=== PATIENT | male | born 1935 | race Caucasian/White ===

== ENCOUNTER 2017-08-03 10:00 | Emergency (ER) | payer MEDICARE ==
[2017-08-03 10:12] VITALS: BP 134/56
--- NOTE | 2017-08-03 11:43 | UC ---
Lower Extremity/Ankle HPI - HPI Summary HPI Summary: c/o leg swelling for the past 3 days. Denies pain on ambulation. History of ankle swelling as well, denies history of trauma. - History of Current Complaint Chief Complaint: UCLowerExtremity Stated Complaint: SWELLING IN FOOT Time Seen by Provider: 08/03/17 10:35 - Allergies/Home Medications Allergies/Adverse Reactions: Allergies Allergy/AdvReac Type Severity Reaction Status Date / Time No Known Allergies Allergy Verified 08/03/17 10:09 PMH/Surg Hx/FS Hx/Imm Hx - Additional Past Medical History Additional PMH: gout, allergic rhinitis Previously Healthy: Yes Cardiovascular History: Hypertension Other History Of: Negative For: Anticoagulant Therapy - Surgical History Surgical History: Yes Surgery Procedure, Year, and Place: RIGHT SIDED COLECTOMY 1997, partial ileus resection at 21 years old - Social History Alcohol Use: Occasionally Substance Use Type: None Smoking Status (MU): Former Smoker Amount Used/How Often: 1/2 PPD When Did the Patient Quit Smoking/Using Tobacco: 1997 Household Exposure Type: Cigarettes - Immunization History Most Recent Influenza Vaccination: fall 2012 Most Recent Tetanus Shot: <10yrs. Most Recent Pneumonia Vaccination: 06/16/13 Review of Systems Constitutional: Negative Musculoskeletal: Edema All Other Systems Reviewed And Are Negative: Yes Physical Exam Triage Information Reviewed: Yes Appearance: Well-Appearing Vital Signs: Initial Vital Signs Temp 98.4 F 08/03/17 10:10 Pulse 77 08/03/17 10:10 Resp 16 08/03/17 10:10 BP 134/56 08/03/17 10:10 Pulse Ox 100 08/03/17 10:10 Vital Signs Reviewed: Yes ENT: Positive: Normal ENT inspection Neck exam: Normal Respiratory Exam: Normal Cardiovascular Exam: Normal Abdominal Exam: Normal Musculoskeletal: Positive: Edema @ - LLE with pitting edema and ankle edema. Pedal pulses present, capillary refill less than 2 sec Neurological: Positive: Alert, Muscle Tone Normal Lower Extremity Course/Dx - Course Course Of Treatment: transfered to ER for venous doppler r/o DVT - Differential Dx/Diagnosis Provider Diagnoses: LLE edema Discharge - Discharge Plan Condition: Stable Disposition: [facility] Patient Education Materials: Leg Edema (ED) Referrals: Victor Manuel Bello MD [Primary Care Provider] -
== END 2017-08-03 11:42 | disposition short-term general hospital (02) ==
LOC: UCEAST 10:00
DX: R60.0 Localized edema (principal); M10.9 Gout, unspecified; J30.9 Allergic rhinitis, unspecified; I10 Essential (primary) hypertension; Z87.891 Personal history of nicotine dependence
CPT/HCPCS: 99212; G0463

== ENCOUNTER 2017-08-03 12:18 | Emergency (ER) | payer MEDICARE, OTHER ==
--- NOTE | 2017-08-03 16:29 | RAD ---
HISTORY: Left lower extremity edema COMPARISONS: None relevant TECHNIQUE: Multiple transverse and longitudinal ultrasound images were obtained of the left lower extremity from the level of the common femoral vein inferiorly through to the infrapopliteal veins using grayscale, color Doppler, and spectral Doppler imaging with and without compression and with augmentation. Comparison images were obtained of the contralateral common femoral vein. FINDINGS: VEINS: The venous system of the left lower extremity is compressible throughout its course, with normal flow on color Doppler imaging and normal response to augmentation on spectral Doppler imaging. SOFT TISSUES: Unremarkable. OTHER FINDINGS: None. IMPRESSION: NO LEFT LOWER EXTREMITY DEEP VEIN THROMBOSIS
--- NOTE | 2017-08-03 16:34 | ED ---
Lower Extremity - HPI Summary HPI Summary: Pt here w/ LLE edema x 5 days. Atraumatic. Was seen at a few days ago as swelling started in foot then. Foot XR completed and reveals degenerative changes in 1st MTP joint. Pt was seen again at today as swelling is progressing w/o known cause. Painless. No improvement with sleeping/elevating at night. Denies chest pain, SOB, ab pain, groin pain, fever, chills, N/V, numbness, tingling, weakness, new onset back pain. No pain w/ movement or weight bearing. Denies smoking, recent causes of dehydration, h/o clots, prolonged sitting (in fact comments, he can't sit still long - likes to move around), change in activity (ie. walking w/ new shoes, new surfaces, etc) and no known h/o CA. Denies knee, hip, back, ankle pain. Does have h/o gout - takes daily allopurinol - this does not feel like gout (again, no pain). - History of Current Complaint Chief Complaint: EDExtremityLower Stated Complaint: LEFT FOOT PAIN COMING FROM Time Seen by Provider: 08/03/17 14:46 Hx Obtained From: Patient, Family/Ways Operator - Pain Intensity: 0 - Allergies/Home Medications Allergies/Adverse Reactions: Allergies Allergy/AdvReac Type Severity Reaction Status Date / Time No Known Allergies Allergy Verified 08/03/17 10:09 PMH/Surg Hx/FS Hx/Imm Hx Previously Healthy: Yes Endocrine/Hematology History: Denies: Hx Anticoagulant Therapy, Hx Diabetes, Hx Systemic Lupus Erythematosus, Hx Thyroid Disease Cardiovascular History: Reports: Hx Hypertension - on meds Denies: Hx Aneurysm, Hx Congestive Heart Failure, Hx Deep Vein Thrombosis, Hx Embolism, Hx Pacemaker/ICD, Hx Peripheral Vascular Disease Respiratory History: Reports: Hx Sleep Apnea - NO MACHINES Denies: Hx Asthma, Hx Chronic Obstructive Pulmonary Disease (COPD) GI History: Reports: Hx Crohn's Disease, Hx Obstructive Bowel, Other GI Disorders - illitis Denies: Hx Diverticulosis, Hx Gall Bladder Disease, Hx Gastroesophageal Reflux Disease, Hx Gastrointestinal Bleed, Hx Ulcer History: Reports: Hx Benign Prostatic Hyperplasia Denies: Hx Renal Disease Musculoskeletal History: Reports: Hx Gout Denies: Hx Arthritis, Hx Rheumatoid Arthritis, Hx Osteoporosis, Hx Scoliosis Sensory History: Reports: Hx Contacts or Glasses Denies: Hx Cataracts, Hx Glaucoma, Hx Hearing Aid Opthamlomology History: Reports: Hx Contacts or Glasses Denies: Hx Cataracts, Hx Glaucoma Neurological History: Denies: Hx Dementia, Hx Headaches, Hx Seizures, Hx Transient Ischemic Attacks (TIA), Other Neuro Impairments/Disorders Psychiatric History: Denies: Hx Anxiety, Hx Depression, Hx Panic Disorder, Hx Substance Abuse - Surgical History Surgery Procedure, Year, and Place: RIGHT SIDED COLECTOMY 1997, partial ileus resection at 21 years old Hx Anesthesia Reactions: No Infectious Disease History: No Infectious Disease History: Denies: Hx Clostridium Difficile, Hx Hepatitis, Hx Human Immunodeficiency Virus (HIV), Hx of Known/Suspected MRSA, Hx Shingles, Hx Tuberculosis, Hx Known/ Suspected VRE, Hx Known/Suspected VRSA, History Other Infectious Disease, Traveled Outside the [place] in Last 30 Days - Family History Known Family History: Positive: None - Social History Occupation: Retired Lives: With Family Alcohol Use: Occasionally Hx Substance Use: No Substance Use Type: Reports: None Hx Tobacco Use: Yes - not currently Smoking Status (MU): Former Smoker Amount Used/How Often: 1/2 PPD Review of Systems Constitutional: Negative Negative: Fever, Chills, Fatigue Cardiovascular: Negative Negative: Chest Pain Respiratory: Negative Negative: Shortness Of Breath Gastrointestinal: Negative Negative: Abdominal Pain, Vomiting, Diarrhea, Nausea Positive: no symptoms reported Positive: Edema. Negative: Arthralgia, Myalgia, Decreased ROM Skin: Negative Negative: Rash, Bruising Neurological: Negative Negative: Headache, Weakness, Paresthesia, Numbness, Syncope, Slurred Speech Psychological: Normal - concerned but calm All Other Systems Reviewed And Are Negative: Yes Physical Exam Triage Information Reviewed: Yes Vital Signs On Initial Exam: Initial Vitals Temp Pulse Resp BP Pulse Ox 98.6 F 66 16 148/64 97 08/03/17 12:39 08/03/17 12:39 08/03/17 12:39 08/03/17 12:39 08/03/17 12:39 Vital Signs Reviewed: Yes Appearance: Positive: Well-Appearing, No Pain Distress, Well-Nourished Skin: Positive: Warm, Skin Color Reflects Adequate Perfusion - varicose vv B/L w / superficial telangectasias over LE's - no skin breakdown, no vesicles, no fever to touch, no kristina erythema, Dry Head/Face: Positive: Normal Head/Face Inspection Eyes: Positive: EOMI ENT: Positive: Hearing grossly normal Respiratory/Lung Sounds: Positive: Breath Sounds Present. Negative: Rales Cardiovascular: Positive: Pulses are Symmetrical in both Upper and Lower Extremities, Leg Edema Left - +1-2 pitting pedal edema on Lt; no pedal edema on Rt; varicose vv B/L w/ multiple areas of superficial capillaries; no fever to touch, no streaking, (-) Efra's, no lesions, no vesicles, no skin breakdown; DP 's +2 equal B/L and cap refill < 2 secs, Leg Edema Right Abdomen Description: Positive: Nontender, Soft. Negative: Pulsatile Mass Musculoskeletal: Positive: Normal, Strength/ROM Intact Neurological: Positive: Normal, Sensory/Motor Intact, Alert, Oriented to Person Place, Time, CN Intact II-III Psychiatric: Positive: Normal - [place] Coma Scale Coma Scale Total: 15 Diagnostics - Vital Signs Vital Signs Temp Pulse Resp BP Pulse Ox 08/03/17 15:22 98.3 F 62 17 125/65 96 08/03/17 12:39 98.6 F 66 16 148/64 97 - Laboratory Lab Statement: Any lab studies that have been ordered have been reviewed, and results considered in the medical decision making process. Lower Extremity Course/Dx - Course Course Of Treatment: U/S neg for DVT - suspect venous stasis - elevated, compression stocking and f/u w/ PCP. Return to ED if danger s/sx present. - Diagnoses Provider Diagnoses: Varicose veins of left leg with edema Discharge - Discharge Plan Condition: Stable Disposition: HOME Patient Education Materials: Venous Insufficiency (DC) Referrals: Victor Manuel Bello MD [Primary Care Provider] - Additional Instructions: Rest, elevate and wear compression stockings Follow-up with PCP this week - call Saturday for appointment *If in the meantime, you develop redness, pain, groin pain, chest pain, shortness of breath, fever, increased heart rate, chills, nausea, vomiting or diarrhea, return to ED
[2017-08-03 17:13] VITALS: BP 136/71
== END 2017-08-03 17:12 | disposition home or self-care (01) ==
LOC: ED 12:18
DX: I83.892 Varicose veins of left lower extremity with other complications (principal); Z87.891 Personal history of nicotine dependence
CPT/HCPCS: 99282

== ENCOUNTER 2018-06-07 02:28 | Inpatient (IN) | payer MEDICARE, OTHER ==
[2018-06-07] MEDS ORDERED: NS 0.9% 1000 ML*IV.FLUID IV ONE (02:48)
--- NOTE | 2018-06-07 03:00 | ED ---
Abdominal Pain/Male - HPI Summary HPI Summary: Pt is an 83 y/o male brought in by EMS who presents to the ED c/o abdominal pain. As per EMS, hes had N/V and LLQ pain for the past 2-3 days. Today he suddenly became weak with chills and collapsed in his garage with possible LOC. Pt then projectile vomited, which made him feel better. As per EMS, he is warm to the touch and is tachycardic. He c/o lower abdominal pain but is no longer nauseated. Pt denies any back pain, CP, dysuria or hematuria. He has a hx of SBO , Crohns, and abdominal surgeries. - History of Current Complaint Stated Complaint: ABD PAIN, SOB Time Seen by Provider: 06/07/18 02:29 Hx Obtained From: Patient, EMS Onset/Duration: Gradual Onset, Lasting Days - 2-3, Worse Since Timing: Constant Pain Intensity: 0 Pain Scale Used: 0-10 Numeric Location: Discrete At: LLQ Radiates: No Alleviating Factor(s): Vomiting Associated Signs And Symptoms: Positive: Fever, Nausea, Vomiting. Negative: Chest Pain, Back Pain, Urinary Symptoms Similar Episode/Dx As:: SBO - Allergies/Home Medications Allergies/Adverse Reactions: Allergies Allergy/AdvReac Type Severity Reaction Status Date / Time No Known Allergies Allergy Verified 06/07/18 04:43 Home Medications: Home Medications Clarinex 5 mg PO DAILY PRN 06/07/18 [History Confirmed 06/07/18] Cyanocobalamin INJ * 1,000 mcg IM MONTHLY 06/07/18 [History Confirmed 06/07/18] Cyclobenzaprine TAB* 10 mg PO BEDTIME PRN 06/07/18 [History Confirmed 06/07/18] Delzicol 800 mg PO BID 06/07/18 [History Confirmed 06/07/18] Fluticasone NASAL SPRAY 50MCG* 1 spray INTRANASAL DAILY 06/07/18 [History Confirmed 06/07/18] Meclizine HCl 25 mg PO TID PRN 06/07/18 [History Confirmed 06/07/18] Oscal D TAB 250/125* 800 mg PO BID 06/07/18 [History Confirmed 06/07/18] Vitamin D3 50,000 units PO WEEKLY 06/07/18 [History Confirmed 06/07/18] PMH/Surg Hx/FS Hx/Imm Hx Endocrine/Hematology History: Denies: Hx Anticoagulant Therapy, Hx Diabetes, Hx Systemic Lupus Erythematosus, Hx Thyroid Disease Cardiovascular History: Reports: Hx Hypertension - on meds Denies: Hx Aneurysm, Hx Congestive Heart Failure, Hx Deep Vein Thrombosis, Hx Embolism, Hx Pacemaker/ICD, Hx Peripheral Vascular Disease Respiratory History: Reports: Hx Sleep Apnea - NO MACHINES Denies: Hx Asthma, Hx Chronic Obstructive Pulmonary Disease (COPD) GI History: Reports: Hx Crohn's Disease, Hx Obstructive Bowel, Other GI Disorders - illitis Denies: Hx Diverticulosis, Hx Gall Bladder Disease, Hx Gastroesophageal Reflux Disease, Hx Gastrointestinal Bleed, Hx Ulcer History: Reports: Hx Benign Prostatic Hyperplasia Denies: Hx Renal Disease Musculoskeletal History: Reports: Hx Gout Denies: Hx Arthritis, Hx Rheumatoid Arthritis, Hx Osteoporosis, Hx Scoliosis Sensory History: Reports: Hx Contacts or Glasses Denies: Hx Cataracts, Hx Glaucoma, Hx Hearing Aid Opthamlomology History: Reports: Hx Contacts or Glasses Denies: Hx Cataracts, Hx Glaucoma Neurological History: Denies: Hx Dementia, Hx Headaches, Hx Seizures, Hx Transient Ischemic Attacks (TIA), Other Neuro Impairments/Disorders Psychiatric History: Denies: Hx Anxiety, Hx Depression, Hx Panic Disorder, Hx Substance Abuse - Surgical History Surgery Procedure, Year, and Place: RIGHT SIDED COLECTOMY 1997, partial ileus resection at 21 years old Hx Anesthesia Reactions: No Infectious Disease History: Unable to Obtain/Confirm Infectious Disease History: Denies: Hx Clostridium Difficile, Hx Hepatitis, Hx Human Immunodeficiency Virus (HIV), Hx of Known/Suspected MRSA, Hx Shingles, Hx Tuberculosis, Hx Known/ Suspected VRE, Hx Known/Suspected VRSA, History Other Infectious Disease, Traveled Outside the [place] in Last 30 Days - Family History Known Family History: Positive: Cardiac Disease, Other - CA, alzheimer's - Social History Alcohol Use: Occasionally Hx Substance Use: No Substance Use Type: Reports: None Hx Tobacco Use: Yes - not currently Smoking Status (MU): Former Smoker Amount Used/How Often: 1/2 PPD Review of Systems Positive: Fever, Chills Negative: Chest Pain Positive: Abdominal Pain, Vomiting, Nausea Negative: dysuria, hematuria Negative: Myalgia - back Neurological: Other - LOC Positive: Weakness All Other Systems Reviewed And Are Negative: Yes Physical Exam - Summary Physical Exam Summary: Appearance: Well appearing, mild pain distress Skin: hot, dry, flushing in face Head/face: normal Eyes: EOMI, [place] ENT: mucous membranes dry Neck: supple, non-tender Respiratory: occasional crackle in right base, breath sounds present Cardiovascular: tachycardic but regular rhythm, pulses symmetrical Abdomen: non-tender, soft, surgical scar in RLQ, large midline surgical scar, no pulsatile abdominal mass Bowel Sounds: increased, no high pitch noises Musculoskeletal: normal, strength/ROM intact Neuro: normal, sensory motor intact, A&Ox3 Triage Information Reviewed: Yes Vital Signs On Initial Exam: Initial Vitals Temp Pulse Resp BP Pulse Ox 103 F 122 16 122/67 93 06/07/18 02:35 06/07/18 02:35 06/07/18 02:35 06/07/18 02:35 06/07/18 02:35 Vital Signs Reviewed: Yes Diagnostics - Vital Signs Vital Signs Temp Pulse Resp BP Pulse Ox 06/07/18 02:50 102.5 F 06/07/18 02:35 103 F 122 16 122/67 93 - Laboratory Result Diagrams: 06/07/18 03:09 06/07/18 03:09 Lab Statement: Any lab studies that have been ordered have been reviewed, and results considered in the medical decision making process. - Radiology CXR Radiology Interpretation Completed By: ED Physician - No acute cardiopulmonary disease. Pending official radiology report. - CT CT A/P CT Interpretation Completed By: Radiologist - 1. There is a 1.9 cm calcific density noted in the distal ileum best seen on axial image 53 and coronal image 42, findings may represent a gallstone or ingested foreign body. There are dilated loops of small bowel noted proximally measuring up to 2.6 CM findings are concerning for partial small bowel obstruction versus ileus. 2. The gallbladder is dilated containing multiple gallstones measuring up to 1.2 CM. Recommend right upper quadrant sonography for further evaluation. 3. There are sutures noted in the cecum and prior partial bowel resection. ED physician reviewed radiology report. - EKG 2:40 Cardiac Rate: Tachycardia - 118 bpm EKG Rhythm: Sinus Rhythm ST Segment: Normal Ectopy: PACs Summary of EKG Findings: LAD, tall T waves anteriorly Re-Evaluation - Re-Evaluation First Eval Re-Evaluation Time: 04:00 Change: Unchanged Comment: Post-void residual 60-125 ml via bladder scanner. Abdominal Pain Fem Course/Dx - Course Course Of Treatment: Patient with history of Crohn's disease presents with abdominal pain, large emesis just prior to arrival. The patient was found to have partial small bowel obstruction with no abscess. His fever improved significantly here. He had no significant WBC elevation. IV Zosyn given. The patient will be admitted to the hospitalist service with GI consultation in the morning. NG tube was not placed as of yet given that his pain, distention has resolved. He has not had any nausea here. There is possibility of gallstone ileus with a calcification seen. Again, there is no pain at present. Dr. Herrera from surgery is aware but has not yet been formally consultation by the admitting team. - Diagnoses Differential Diagnosis/HQI/PQRI: Abdominal Aortic Aneurysm, Appendicitis, Bowel Obstruction, Constipation, Gall Bladder Disease, Ischemic Bowel, Pancreatitis, Peptic Ulcer Disease, Other - Gallstone ileus Provider Diagnoses: Partial small bowel obstruction, Crohn's disease, Sepsis syndrome, Chronic renal insufficiency, Prostatic hypertrophy - Provider Notifications Discussed Care Of Patient With: Rubén Herrera Time Discussed With Above Provider: 05:28 Instructed by Provider To: Admit As Inpatient Discharge - Sign-Out/Discharge Documenting (check all that apply): Patient Departure - Admit - Discharge Plan Condition: Stable Disposition: ADMITTED TO [facility] - Billing Disposition and Condition Condition: STABLE Disposition: Admitted to [facility] - Attestation Statements Document Initiated by Scribe: Yes Documenting Scribe: Kristal [place] Provider For Whom Scribe is Documenting (Include Credential): Reynaldo Sousa MD Scribe Attestation: Kristal Villa, scribed for Reynaldo Sousa MD on 06/07/18 at 0632. Scribe Documentation Reviewed: Yes Provider Attestation: The documentation as recorded by the Kristal fisher accurately reflects the service I personally performed and the decisions made by , Reynaldo Sousa MD
[2018-06-07] MEDS ORDERED: Acetaminophen TAB* 325 MG PO ONE (03:18)
[2018-06-07 03:19] LABS: ABS Basophils 0 10^3/ul (0-0.2); ABS Eosinophils 0 10^3/ul (0-0.6); ABS Lymphocytes 0.2 10^3/ul (1.0-4.8); ABS Monocytes 0.1 10^3/ul (0-0.8); ABS Neutrophils 7.5 10^3/ul (1.5-7.7); ABS Nucleated RBC 0 10^3/ul; Eosinophil % 0.3 % (0-6); Hematocrit 42 % (42-52); Hemoglobin 14.2 g/dl (14.0-18.0); Lymphocyte % 2.5 % (25-47); Mean Corpuscular HGB Conc 34 g/dl (31-36); Mean Corpuscular Hemoglobin 28 pg (27-31); Mean Corpuscular Volume 84 fL (80-94); Mean Platelet Volume 8.3 fL (7.4-10.4); Nucleated Red Blood Cells % 0.1; Platelet Count 113 10^3/ul (150-450); Red Blood Count 5.02 10^6/ul (4.00-5.40); Red Cell Distribution Width 14 % (10.5-15); White Blood Count 7.8 10^3/ul (3.5-10.8)
[2018-06-07 03:25] LABS: INR 1.14 (0.77-1.02)
[2018-06-07] MEDS ORDERED: Piperacillin/Tazobac ADVAN(*) 3.375 GM in NS 0.9% 100 ML* 100 ML IVPB ONE (04:04)
[2018-06-07] MEDS ORDERED: NS 0.9% 1000 ML* 1,000 ML IV SCH (04:45)
[2018-06-07] MEDS ORDERED: Ondansetron INJ* 2 MG/ML VIAL IV PRN (04:47)
[2018-06-07] MEDS ORDERED: Cetirizine* 10 MG TAB PO PRN (04:48)
[2018-06-07] MEDS ORDERED: AZELASTINE HCL 137 MCG NASAL PRN (04:48)
[2018-06-07] MEDS ORDERED: Cyclobenzaprine TAB* 10 MG PO PRN (05:44)
[2018-06-07] MEDS ORDERED: DESLORATADINE 5 MG PO PRN (05:44)
[2018-06-07] MEDS ORDERED: Meclizine TAB* 12.5 MG PO PRN (05:44)
[2018-06-07] MEDS ORDERED: VITAMIN D3 50000 UNIT PO SCH (05:45)
[2018-06-07] MEDS ORDERED: CYANOCOBALAMIN 1000 MCG IM SCH (05:45)
[2018-06-07] MEDS ORDERED: Heparin VIAL(*) 5000 UNITS/ML VIAL (FIVE THOUSAND) SUBCUT SCH (06:00)
[2018-06-07] MEDS: Pantoprazole IV* 40 MG IV SCH (06:57)
[2018-06-07 08:03] LABS: EGFR Non-African American 37.1 (>60)
[2018-06-07 08:08] LABS: Hematocrit 37 % (42-52); Hemoglobin 12.4 g/dl (14.0-18.0); Mean Corpuscular HGB Conc 33 g/dl (31-36); Mean Corpuscular Hemoglobin 28 pg (27-31); Mean Corpuscular Volume 85 fL (80-94); Mean Platelet Volume 8.7 fL (7.4-10.4); Platelet Count 100 10^3/ul (150-450); Red Blood Count 4.38 10^6/ul (4.00-5.40); Red Cell Distribution Width 14 % (10.5-15); White Blood Count 12.8 10^3/ul (3.5-10.8)
[2018-06-07 08:15] LABS: ABS Basophils 0 10^3/ul (0-0.2); ABS Eosinophils 0 10^3/ul (0-0.6); ABS Lymphocytes 0.3 10^3/ul (1.0-4.8); ABS Monocytes 0.5 10^3/ul (0-0.8); ABS Nucleated RBC 0 10^3/ul; Eosinophil % 0.1 % (0-6); Lymphocyte % 2.2 % (25-47); Nucleated Red Blood Cells % 0
[2018-06-07] MEDS ORDERED: Acetaminophen SUPP* 650 MG SUPP PR PRN (08:35)
[2018-06-07] MEDS ORDERED: PROCHLORPERAZINE INJ 5 MG/ML 2 ML VIAL IV PRN (08:37)
[2018-06-07] MEDS ORDERED: Ascorbic Acid TAB* 500 MG PO SCH (09:00)
[2018-06-07] MEDS ORDERED: Multivitamins/Minerals TAB PO SCH (09:00)
[2018-06-07] MEDS ORDERED: OMEGA ACID ETHYL ESTERS PO SCH (09:00)
[2018-06-07] MEDS ORDERED: SAW PALMETTO PO SCH (09:00)
[2018-06-07] MEDS ORDERED: Allopurinol TAB* 100 MG PO SCH (09:00)
[2018-06-07] MEDS ORDERED: amLODIPine TAB* 5 MG PO SCH (09:00)
[2018-06-07] MEDS ORDERED: MESALAMINE PO SCH (09:00)
[2018-06-07] MEDS ORDERED: Lisinopril TAB* 10 MG PO SCH (09:00)
[2018-06-07] MEDS ORDERED: FOLIC ACID 0.4 MG PO SCH (09:00)
[2018-06-07] MEDS ORDERED: Calcium/Vitamin D TAB 250/125* TAB PO SCH (09:00)
[2018-06-07] MEDS ORDERED: Heparin VIAL(*) 5000 UNITS/ML VIAL (FIVE THOUSAND) IV PRN (09:03)
--- NOTE | 2018-06-07 09:09 | ADMNOTE ---
Subjective Date of Service: 06/07/18 Interval History: code status full this is admission h/p hpi this is a 83 yr old wm with hx of crohn's f/u with gi dr turner presented to er with increased abd n/v/d spike to 103/shivering. pt had a large volume of vomitus prior to admission and says his abd pain has been better. supposed to see gi dr turner but was unable to get appt yet. ct of abd showed partial sbo with multiple gallstones seen 1.9 cm calcified density seen on the distal ileum had diarrheas 2- 3 episodes within the last month abd pain described as grabbing type of pain located in the mid abd 5-12/22 phx /pshx crohn not on any immunotherapy f/u with dr turner s/p small bowel resection with colostomy/reversal 20 yrs ago htn social hx no cig occ etoh walks indep lives with fhx denied any htn/dm/cva/cad with no family hx of ibd Review of Systems - Measurements Intake and Output: Intake and Output Last 24 Hours 06/05/18 06/06/18 06/07/18 06/08/18 06:59 06:59 06:59 06:59 Intake Total 2600 Output Total 250 Balance 2350 Weight 185 lb Intake: IV Fluids 2600 Output: Urine 250 - Review of Systems General Comments: pertinent as per hpi Objective Active Medications: Acetaminophen (Tylenol Supp*) 650 mg SD Q4H PRN PRN Reason: Pain/fever Fluticasone Propionate (Flonase Nasal [place] 50mcg*) 1 spray INTRANASAL DAILY MATT Heparin Sodium (Porcine) (Heparin Vial(*)) 0 units IV .BOLUS PRN PRN Reason: PER HEPARIN DRIP PROTOCOL Sodium Chloride (Ns 0.9% 1000 Ml*) 1,000 mls @ 125 mls/hr IV PER RATE MATT Last Admin: 06/07/18 06:51 Dose: 125 mls/hr Piperacillin Sod/Tazobactam (Sod 3.375 gm/ Sodium Chloride) 100 mls @ 25 mls/ hr IVPB Q8H MATT Diltiazem HCl 125 mg/ Sodium (Chloride) 125 mls @ 5 mls/hr IVPB Q24H MATT; Protocol Heparin Sodium/Dextrose (Heparin Drip 25,000 Units(*)) 25,000 units in 500 mls @ 0 mls/hr IV PER RATE [facility]; Protocol Nft: Azelastine Hcl ([Astelin] 137 Mcg) 137 mcg NASAL BID PRN PRN Reason: CONGESTION Ondansetron HCl (Zofran Inj*) 4 mg IV Q6H PRN PRN Reason: NAUSEA Pantoprazole Sodium (Protonix Iv*) 40 mg IV Q24H [facility] Last Admin: 06/07/18 06:57 Dose: 40 mg Prochlorperazine Edisylate (Compazine Inj*) 5 mg IV Q6H PRN PRN Reason: NAUSEA/VOMITING Vital Signs - 8 hr 06/07/18 06/07/18 06/07/18 02:35 02:50 02:52 Temperature 103 F 102.5 F Pulse Rate 122 113 Respiratory 16 24 Rate Blood Pressure 122/67 123/62 (mmHg) O2 Sat by Pulse 93 90 Oximetry 06/07/18 06/07/18 06/07/18 03:00 03:37 03:52 Temperature Pulse Rate 106 93 97 Respiratory 26 30 22 Rate Blood Pressure 114/60 119/58 (mmHg) O2 Sat by Pulse 90 93 94 Oximetry 06/07/18 06/07/18 06/07/18 04:00 04:22 04:27 Temperature 99.7 F Pulse Rate 99 95 Respiratory 23 22 Rate Blood Pressure 101/53 (mmHg) O2 Sat by Pulse 93 93 Oximetry 06/07/18 06/07/18 06/07/18 04:52 05:00 05:15 Temperature Pulse Rate 126 139 125 Respiratory 19 21 22 Rate Blood Pressure 90/56 81/55 (mmHg) O2 Sat by Pulse 94 92 92 Oximetry 06/07/18 06/07/18 06/07/18 05:17 05:19 05:20 Temperature 99.2 F Pulse Rate 125 140 124 Respiratory 26 22 16 Rate Blood Pressure 79/46 73/55 92/53 (mmHg) O2 Sat by Pulse 92 91 93 Oximetry 06/07/18 06/07/18 06/07/18 05:21 05:51 06:00 Temperature Pulse Rate 129 117 117 Respiratory 22 20 23 Rate Blood Pressure 92/53 94/45 (mmHg) O2 Sat by Pulse 90 92 91 Oximetry 06/07/18 06/07/18 06/07/18 06:21 06:40 06:50 Temperature 99.2 F 98.3 F Pulse Rate 115 124 116 Respiratory 21 16 18 Rate Blood Pressure 84/56 92/53 96/56 (mmHg) O2 Sat by Pulse 91 93 94 Oximetry 06/07/18 06/07/18 06/07/18 06:55 08:00 08:59 Temperature 98.3 F Pulse Rate 116 Respiratory 18 18 Rate Blood Pressure 96/56 (mmHg) O2 Sat by Pulse 94 94 Oximetry Oxygen Devices in Use Now: Nasal Cannula Appearance: nad Eyes: No Scleral Icterus, PERRLA Ears/Nose/Mouth/Throat: NL Teeth, Lips, Gums, Clear Oropharnyx, Mucous Membranes Moist Neck: NL Appearance and Movements; NL JVP, Trachea Midline, No Thyroid Enlargement, Masses Respiratory: Symmetrical Chest Expansion and Respiratory Effort, Clear to Auscultation Cardiovascular: NL Sounds; No Murmurs; No JVD, RRR - soft + mild tenderness at mid abd around the umbilicus no rebound no guarding Extremities: - - trace pedal edema able to raise ue and le against gravity Skin: No Rash or Ulcers Neurological: Alert and Oriented x 3, NL Sensation, NL Muscle Strength and Tone - sinus tach no acute st t change seen Result Diagrams: 06/07/18 06:13 06/07/18 06:13 Assess/Plan/Problems-Billing Assessment: this is a 83 yr old wm with hx of crohn dz but not on any immunotherapy presented with n/v/d/fever ---> ct scan of abd showed partial sbo with multiple gallstone seen pt also has 1.9 cm calcified lesion seen in the distal ileum intial wbc was wnl got zosyn from er his intial abd exam was quite benign - Patient Problems (1) Abdominal pain Current Visit: Yes Status: Acute Code(s): R10.9 - UNSPECIFIED ABDOMINAL PAIN SNOMED Code(s): 86441021 Comment: npo except meds for now will need to call dr turner er did not call him one 1.9 cm mass seen in the terminal ileum but has calcification ---> chronic instead of acute (2) SBO (small bowel obstruction) Current Visit: Yes Status: Acute Code(s): K56.609 - UNSP INTESTNL OBST, UNSP TO PARTIAL VERSUS COMPLETE OBST SNOMED Code(s): 991736716 Comment: partial sbo currently does not have n/v zofran prn no ngt yet await for gi eval in am then decide (3) Gallstone Current Visit: Yes Status: Acute Code(s): K80.20 - CALCULUS OF GALLBLADDER W /O CHOLECYSTITIS W/O OBSTRUCTION SNOMED Code(s): 939640180 Comment: this has been a chronic problem with multiple stone seen abd sono will be ordered for am (4) HTN (hypertension) Current Visit: Yes Status: Acute Code(s): I10 - ESSENTIAL (PRIMARY) HYPERTENSION SNOMED Code(s): 19904336 Comment: stable continue outpt meds
[2018-06-07] MEDS: Heparin DRIP 25,000 UNITS(*) 25,000 UNITS/500 ML BAG IV SCH (10:00)
[2018-06-07] MEDS ORDERED: Digoxin IV* 0.5 MG/2 ML AMP (0.25 MG/ML) IV SLOW PU ONE (10:03)
[2018-06-07] MEDS: Piperacillin/Tazobac ADVAN(*) 3.375 GM in NS 0.9% 100 ML* 100 ML IVPB SCH ×2 (10:06→15:29)
[2018-06-07] MEDS: Fluticasone NASAL SPRAY 50MCG* 16 gm SPRAY BTL INTRANASAL SCH (10:09)
--- NOTE | 2018-06-07 10:46 | PN ---
Subjective Date of Service: 06/07/18 Interval History: HOSPITALIST PROGRESS NOTE Patient seen and evaluated at bedside at 8AM. Care reviewed and d/w Melania Velasquez RN. He feels a little better this AM. Denies abdominal pain, no further episodes of N/V. No BM and not passing gas since last night. Denies chest pain, palpitations , or dyspnea. Family History: Unchanged from Admission Social History: Unchanged from Admission Past Medical History: Unchanged from Admission Objective Active Medications: Acetaminophen (Tylenol Supp*) 650 mg AL Q4H PRN PRN Reason: Pain/fever Fluticasone Propionate (Flonase Nasal [place] 50mcg*) 1 spray INTRANASAL DAILY MATT Last Admin: 06/07/18 10:09 Dose: 1 spray Heparin Sodium (Porcine) (Heparin Vial(*)) 0 units IV .BOLUS PRN PRN Reason: PER HEPARIN DRIP PROTOCOL Last Admin: 06/07/18 10:00 Dose: 5,900 units Piperacillin Sod/Tazobactam (Sod 3.375 gm/ Sodium Chloride) 100 mls @ 25 mls/ hr IVPB Q8H MATT Last Admin: 06/07/18 10:06 Dose: 25 mls/hr Heparin Sodium/Dextrose (Heparin Drip 25,000 Units(*)) 25,000 units in 500 mls @ 0 mls/hr IV PER RATE MATT; Protocol Last Admin: 06/07/18 10:00 Dose: 25 mls/hr Potassium Chloride (Potassium Chloride 10 Meq/50 Ml Ivpremix*) 10 meq in 50 mls @ 50 mls/hr IV Q1H MATT Stop: 06/07/18 13:59 Lactated Ringer's (Lactated Ringers 1000 Ml Bag*) 1,000 mls @ 0 mls/hr IV WIDE OPEN MATT Stop: 06/08/18 11:01 Nft: Azelastine Hcl ([Astelin] 137 Mcg) 137 mcg NASAL BID PRN PRN Reason: CONGESTION Ondansetron HCl (Zofran Inj*) 4 mg IV Q6H PRN PRN Reason: NAUSEA Pantoprazole Sodium (Protonix Iv*) 40 mg IV Q24H MATT Last Admin: 06/07/18 06:57 Dose: 40 mg Prochlorperazine Edisylate (Compazine Inj*) 5 mg IV Q6H PRN PRN Reason: NAUSEA/VOMITING Vital Signs - 8 hr 06/07/18 06/07/18 06/07/18 02:50 02:52 03:00 Temperature 102.5 F Pulse Rate 113 106 Respiratory 24 26 Rate Blood Pressure 123/62 (mmHg) O2 Sat by Pulse 90 90 Oximetry 06/07/18 06/07/18 06/07/18 03:37 03:52 04:00 Temperature Pulse Rate 93 97 99 Respiratory 30 22 23 Rate Blood Pressure 114/60 119/58 (mmHg) O2 Sat by Pulse 93 94 93 Oximetry 06/07/18 06/07/18 06/07/18 04:22 04:27 04:52 Temperature 99.7 F Pulse Rate 95 126 Respiratory 22 19 Rate Blood Pressure 101/53 90/56 (mmHg) O2 Sat by Pulse 93 94 Oximetry 06/07/18 06/07/18 06/07/18 05:00 05:15 05:17 Temperature Pulse Rate 139 125 125 Respiratory 21 22 26 Rate Blood Pressure 81/55 79/46 (mmHg) O2 Sat by Pulse 92 92 92 Oximetry 06/07/18 06/07/18 06/07/18 05:19 05:20 05:21 Temperature 99.2 F Pulse Rate 140 124 129 Respiratory 22 16 22 Rate Blood Pressure 73/55 92/53 92/53 (mmHg) O2 Sat by Pulse 91 93 90 Oximetry 06/07/18 06/07/18 06/07/18 05:51 06:00 06:21 Temperature Pulse Rate 117 117 115 Respiratory 20 23 21 Rate Blood Pressure 94/45 84/56 (mmHg) O2 Sat by Pulse 92 91 91 Oximetry 06/07/18 06/07/18 06/07/18 06:40 06:50 06:55 Temperature 99.2 F 98.3 F 98.3 F Pulse Rate 124 116 116 Respiratory 16 18 18 Rate Blood Pressure 92/53 96/56 96/56 (mmHg) O2 Sat by Pulse 93 94 94 Oximetry 06/07/18 06/07/18 06/07/18 08:00 08:59 09:25 Temperature 98.0 F Pulse Rate 93 Respiratory 18 20 Rate Blood Pressure 86/50 (mmHg) O2 Sat by Pulse 94 97 Oximetry Oxygen Devices in Use Now: Nasal Cannula - 3 liters Appearance: Elderly gentleman lying in bed in NAD. Eyes: No Scleral Icterus Ears/Nose/Mouth/Throat: Mucous Membranes Moist Neck: Trachea Midline Respiratory: Symmetrical Chest Expansion and Respiratory Effort, Clear to Auscultation Cardiovascular: - - Normal S1 and S2, irregulary irregular Abdominal: - - Soft, mild RLQ tenderness, NG, NR, BS+ and increased. Old, well healed midline and RLQ scars Extremities: No Edema Neurological: Alert and Oriented x 3, NL Muscle Strength and Tone Result Diagrams: 06/07/18 06:13 06/07/18 06:13 Assess/Plan/Problems-Billing Assessment: Mr Sam is a 83yo M with PMH of Crohn's disease s/p ileal resection age 21 and right colectomy with colostomy and reversal age 63, HTN, AGUSTÍN not o CPAP, BPH , Gout, who presented to ED with c/o nausea vomiting, found to have pSBO. - Patient Problems (1) Severe sepsis Comment: - Patient's presentation compatible with sepsis with fever and tachycardia. - Source appears to be GI (enteritis - infectious vs Crohn's). - CxR was negative. - Awaiting UA, but no urinary complaints. - Lactic acid 0.8. - Blood culture shows no growth so far. - Continue IVF and monitor closely. - Critical care consult requested with Dr Serrano. (2) SBO (small bowel obstruction) Comment: - CT showed a 1.9 cm calcific density noted in the distal ileum with proximal dilated loops of small bowel concerning for pSBO. - This calcification could be a gallstone, but he does not have pneumobilia or other signs suggestive of fistula, although with Crohn's a fistula is always possible. This could also be a calcified tumor or even surgical change from prior surgery (ileal surgery when he was 21yo). - Awaiting GI and Surgery consults. - Continue Zosyn #1. (3) Atrial fibrillation Comment: - He was in NSR at 2:40AM and now in Afib with RVR, likely secondary to inflammatory/infectious stress. - Attempted Diltiazem drip for rate control, but even before receiving first dose, BP trended down. Will give digoxin x1 and transfer to ICU for close monitoring and Amiodarone drip if necessary. - Heparin drip. - Check echocardiogram. - Cardiology consult requested with Dr. Anderson. (4) Elevated troponin Comment: - Likely secondary to demand ischemia in the setting of severe sepsis and Afib RVR. - Heparin drip. - Start low dose Aspirin. - Check echo and awaiting Cardio evaluation. (5) VANESSA (acute kidney injury) Comment: - Pre renal in the setting of dehydration due to N/V, but also associated with sepsis. - Continue IVF and monitor. - Place Rasmussen for close UO monitoring. (6) DVT prophylaxis Comment: - Heparin drip. (7) Full code status Status and Disposition: Inpatient for management of severe sepsis. , son, and daughter updated at bedside.
--- NOTE | 2018-06-07 11:29 | PN ---
Cardiology Progress Note Date of Service: 06/07/18 - CC: n/v, GI pain w/elevated trops. Full note dictated. Pt with Crohn's disease, distant abdominal surgery with 5 days GI c/o. Arrived with n/v abd pain, shivering and SOB w/shivering. Mild ST depression 1, V6 (lateral leads), now resolved. Developed Afib after admission, afib rate = sinus rate. Troponins: 0.34 Vital Signs - On Arrival Temp Pulse Resp BP Pulse Ox 103 F 122 16 122/67 93 06/07/18 02:35 06/07/18 02:35 06/07/18 02:35 06/07/18 02:35 06/07/18 02:35 Vital Signs - Most Recent Temp Pulse Resp BP Pulse Ox 98.0 F 93 20 86/50 97 06/07/18 09:25 06/07/18 09:25 06/07/18 09:25 06/07/18 09:25 06/07/18 09:25 Clear lungs. No murmurs. Laboratory Tests 06/07/18 06/07/18 06/07/18 03:09 03:09 03:09 WBC 7.8 RBC 5.02 Hgb 14.2 Hct 42 MCV 84 MCH 28 MCHC 34 RDW 14 Plt Count 113 L MPV 8.3 Neut % (Auto) 96.0 H Lymph % (Auto) 2.5 L Price % (Auto) 1.0 Eos % (Auto) 0.3 Baso % (Auto) 0.2 Absolute Neuts (auto) 7.5 Absolute Lymphs (auto) 0.2 L Absolute Monos (auto) 0.1 Absolute Eos (auto) 0 Absolute Basos (auto) 0 Absolute Nucleated RBC 0 Nucleated RBC % 0.1 INR (Anticoag Therapy) 1.14 H APTT 27.2 Sodium 140 Potassium 3.6 Chloride 110 Carbon Dioxide 21 L Anion Gap 9 BUN 35 H Creatinine 1.86 H Est GFR ( Amer) 42.4 Est GFR (Non-Af Amer) 35.0 BUN/Creatinine Ratio 18.8 Glucose 120 H Lactic Acid Calcium 9.2 Total Bilirubin 1.00 AST 17 ALT 13 Alkaline Phosphatase 75 Troponin I 0.07 H* C-Reactive Protein 23.72 H B-Natriuretic Peptide Total Protein 6.5 Albumin 3.8 Globulin 2.7 Albumin/Globulin Ratio 1.4 Lipase 13 TSH 1.29 06/07/18 06/07/18 06/07/18 03:09 03:09 06:13 WBC RBC Hgb Hct MCV MCH MCHC RDW Plt Count MPV Neut % (Auto) Lymph % (Auto) Price % (Auto) Eos % (Auto) Baso % (Auto) Absolute Neuts (auto) Absolute Lymphs (auto) Absolute Monos (auto) Absolute Eos (auto) Absolute Basos (auto) Absolute Nucleated RBC Nucleated RBC % INR (Anticoag Therapy) APTT Sodium Potassium Chloride Carbon Dioxide Anion Gap BUN Creatinine Est GFR ( Amer) Est GFR (Non-Af Amer) BUN/Creatinine Ratio Glucose Lactic Acid 1.5 0.8 Calcium Total Bilirubin AST ALT Alkaline Phosphatase Troponin I C-Reactive Protein B-Natriuretic Peptide 16 Total Protein Albumin Globulin Albumin/Globulin Ratio Lipase TSH 06/07/18 06/07/18 06/07/18 06:13 06:13 09:32 WBC 12.8 H RBC 4.38 Hgb 12.4 L Hct 37 L MCV 85 MCH 28 MCHC 33 RDW 14 Plt Count 100 L MPV 8.7 Neut % (Auto) 93.8 H Lymph % (Auto) 2.2 L Price % (Auto) 3.7 Eos % (Auto) 0.1 Baso % (Auto) 0.2 Absolute Neuts (auto) 12.0 H Absolute Lymphs (auto) 0.3 L Absolute Monos (auto) 0.5 Absolute Eos (auto) 0 Absolute Basos (auto) 0 Absolute Nucleated RBC 0 Nucleated RBC % 0 INR (Anticoag Therapy) APTT Sodium 142 Potassium 3.2 L Chloride 116 H Carbon Dioxide 17 L Anion Gap 9 BUN 32 H Creatinine 1.77 H Est GFR ( Amer) 44.9 Est GFR (Non-Af Amer) 37.1 BUN/Creatinine Ratio 18.1 Glucose 106 H Lactic Acid Calcium 8.0 L Total Bilirubin 1.00 AST 15 ALT 11 Alkaline Phosphatase 59 Troponin I 0.32 H* 0.34 H* C-Reactive Protein B-Natriuretic Peptide Total Protein 5.2 L Albumin 3.1 L Globulin 2.1 Albumin/Globulin Ratio 1.5 Lipase TSH Cancelled 06/07/18 09:32 WBC RBC Hgb Hct MCV MCH MCHC RDW Plt Count MPV Neut % (Auto) Lymph % (Auto) Price % (Auto) Eos % (Auto) Baso % (Auto) Absolute Neuts (auto) Absolute Lymphs (auto) Absolute Monos (auto) Absolute Eos (auto) Absolute Basos (auto) Absolute Nucleated RBC Nucleated RBC % INR (Anticoag Therapy) APTT 30.0 Sodium Potassium Chloride Carbon Dioxide Anion Gap BUN Creatinine Est GFR ( Amer) Est GFR (Non-Af Amer) BUN/Creatinine Ratio Glucose Lactic Acid Calcium Total Bilirubin AST ALT Alkaline Phosphatase Troponin I C-Reactive Protein B-Natriuretic Peptide Total Protein Albumin Globulin Albumin/Globulin Ratio Lipase TSH A/P Pt presenting w/acute abdoman, appears septic with mild elevation troponins, PAF , no angina. PAF: Heparin gtt for now as it can be stopped prn surgery. Keep lytes optimized, KCl 4-4.5 goal. If/when able, low dose metoprolol, but right now rate appropriate for medical status. Troponin bump: Likely demand/type 2 ischemia. CAD risks are HTN, Crohn's, negative FHx, chol, DM, no smkes X 20 years. Follow troponins and ECG's. Consider ASA 81 mg if OK w/Surgery/GI Supportive care of BP/GI, I agree with hydration. When BP stabilized, no longer septic low dose metoprolol as above. Echo to evaluate for EF, wall motion, ensure no pericardial effusion. No acute plans for cath or stress test. Dication completed.
[2018-06-07] MEDS: KCL 10 MEQ/50 ML IVPREMIX* 10 MEQ/50 ML BAG IV SCH ×3 (11:45→15:29)
[2018-06-07 13:01] LABS: Urine Appearance Cloudy; Urine Blood 3+ (Negative); Urine Color Yellow; Urine Ketones Negative (Negative); Urine Protein Negative (Negative); Urine Red Blood Cell 3+(>10/hpf) (Absent); Urine Specific Gravity 1.017 (1.010-1.030); Urine Urobilinogen Negative (Negative); Urine White Blood Cell 1+(6-10/hpf) (Absent)
--- NOTE | 2018-06-07 16:05 | PN ---
Sepsis Event Evaluation Date of Evaluation: 06/07/18 Time of Evaluation: 15:30 Current Stage of Sepsis: Severe Sepsis Vital Signs - Last 12 Hours: Vital Signs - 12 hr Temp Pulse Resp BP Pulse Ox 06/07/18 15:56 67 06/07/18 15:45 65 18 124/66 94 06/07/18 15:30 65 19 121/64 94 06/07/18 15:15 67 18 118/62 94 06/07/18 15:01 69 16 96 06/07/18 15:00 67 21 123/68 97 06/07/18 14:30 70 17 120/65 96 06/07/18 14:15 68 28 120/70 96 06/07/18 14:01 67 23 97 06/07/18 14:00 68 23 123/75 98 06/07/18 13:50 18 06/07/18 13:45 66 20 122/64 94 06/07/18 13:30 66 18 118/62 95 06/07/18 13:15 67 18 114/64 94 06/07/18 13:01 69 25 94 06/07/18 13:00 68 18 127/65 95 06/07/18 12:45 75 20 112/66 95 06/07/18 12:30 73 10 109/62 95 06/07/18 12:15 78 20 100/63 93 06/07/18 12:01 84 25 95 06/07/18 12:00 98.1 F 92 18 105/62 95 06/07/18 11:59 98.8 F 86 24 98/50 97 06/07/18 11:47 92 19 103/68 96 06/07/18 11:30 88 23 108/58 97 06/07/18 11:25 89 24 98/50 97 06/07/18 11:00 20 06/07/18 09:25 98.0 F 93 20 86/50 97 06/07/18 08:59 18 06/07/18 08:00 94 06/07/18 07:00 6 06/07/18 06:55 98.3 F 116 18 96/56 94 06/07/18 06:50 98.3 F 116 18 96/56 94 06/07/18 06:40 99.2 F 124 16 92/53 93 06/07/18 06:21 115 21 84/56 91 06/07/18 06:00 117 23 91 06/07/18 05:51 117 20 94/45 92 06/07/18 05:21 129 22 92/53 90 06/07/18 05:20 99.2 F 124 16 92/53 93 06/07/18 05:19 140 22 73/55 91 06/07/18 05:17 125 26 79/46 92 06/07/18 05:15 125 22 81/55 92 06/07/18 05:00 139 21 92 06/07/18 04:52 126 19 90/56 94 06/07/18 04:27 99.7 F 06/07/18 04:22 95 22 101/53 93 Lactic Acid: 06/07/18 06/07/18 03:09 06:13 Lactic Acid 1.5 0.8 - Cardiopulmonary Exam Capillary Refill: Immediate Respiratory: Symmetrical Chest Expansion and Respiratory Effort, Clear to Auscultation Cardiovascular: - - Normal S1 and S2, irregularly irregular - Peripheral Pulse Exam Radial Pulses: Bilateral Normal Pedal Pulses: Bilateral Normal Popliteal Pulses: Bilateral Normal - Skin Exam Skin Exam: Normal Turgor - Ione Coma Scale Best Eye Response: 4 - Spontaneous Best Motor Response: 6 - Obeys Commands Best Verbal Response: 5 - Oriented Coma Scale Total: 15 Assess/Plan/Problems-Billing Assessment: Mr Sam is a 83yo M with PMH of Crohn's disease s/p ileal resection age 21 and right colectomy with colostomy and reversal age 63, HTN, AGUSTÍN not o CPAP, BPH , Gout, who presented to ED with c/o nausea vomiting, found to have pSBO. - Patient Problems (1) Severe sepsis Comment: - Patient's presentation compatible with sepsis with fever and tachycardia. - Source appears to be GI (enteritis - infectious vs Crohn's). - Critical care consult requested with Dr Serrano. (2) Atrial fibrillation Comment: - He was in NSR at 2:40AM and now in Afib with RVR, likely secondary to inflammatory/infectious stress. - Attempted Diltiazem drip for rate control, but even before receiving first dose, BP trended down. Will give digoxin x1 and transfer to ICU for close monitoring and Amiodarone drip if necessary. - Heparin drip. - Check echocardiogram. - Cardiology consult requested with Dr. Anderson. (3) VANESSA (acute kidney injury) Comment: - Pre renal in the setting of dehydration due to N/V, but also associated with sepsis. - Continue IVF and monitor. - Place [place] for close UO monitoring. (4) Full code status Status and Disposition: Inpatient for management of severe sepsis.
--- NOTE | 2018-06-07 16:07 | CONS ---
CC: Dr. Victor Manuel Bello, the Hospitalist Service CONSULTATION REPORT: DATE OF CONSULT: 06/07/18 REASON FOR CONSULT: Elevated troponins and paroxysmal AFib. CHIEF COMPLAINT: Abdominal discomfort and shivering. HISTORY OF PRESENT ILLNESS: Mr. Sam is an 83-year-old gentleman with a history of Crohn's going b ack to his teenage years. He has no past cardiac history. The patient was in his usual state of health until 5 days ago, Saturday. He had some anorexia and abd ominal discomfort and did not eat from Saturday to , had a little bit of food on , 2 days ago. Last night, he was shivering and this morning, awoke with his stomach feeling babbly an d vomiting. He presented to the emergency room. ER evaluation included troponins, which were mildly elevated. A CT of the abdomen showed partial sma ll bowel obstruction as well as multiple gallstones and a calcified density within the distal ileum. Currently, the patient is feeling much better. He is on getting IV hydration. He denies ever having had chest pain. He had some shortness of breath last night with shivering. Before the events of , the patient had been active with doing activities of daily living, they have stairs in their house, he climbed without problems. He is active in the community doing volunteer work and he has h ad no problems with exercise intolerance, decline in functional ability. He denies orthopnea or PND. PAST MEDICAL HISTORY: The patient had a past medical history of: 1. Crohn's disease, status post right hemicolectomy age 21. 2. Hypertension. 3. Benign prostatic hypertrophy. 4. Chronic renal insufficiency. 5. History of small bowel obstruction. 6. Lower extremity venous insufficiency. PAST SURGICAL HISTORY: Includes: 1. Partial colectomy. 2. Appendectomy. 3. Tonsillectomy. 4. Vein ligation, May 2018, Dr. Watkins. MEDICATIONS: Current inpatient medications include: 1. Tylenol p.r.n. 2. Flonase. 3. Heparin drip since started lactated Ringers wide open. 4. Astelin 137 mcg b.i.d. p.r.n. nasal congestion. 5. Zofran p.r.n. 6. Protonix 40 mg a day. 7. Pip/tazo q.8 hours. 9. Compazine p.r.n. Discontinued/held medications include: 1. Norvasc. 2. Vitamin C. 3. Vitamin D. 4. Flexeril. 5. Lisinopril. 6. Multi-Vites. He received 1 time digoxin. ALLERGIES: He has no known drug allergies. FAMILY HISTORY: His father of kidney problems, but he is uncertain of the etiology. No history of any heart disease. No history of coronary artery disease, rhythm problems, strokes that he is aw corey of. He has 1 sibling without history of heart problems. 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 He stopped smok ing 20 years ago. No history of significant alcohol intake. He has a supportive family who is [facility]. REVIEW OF SYSTEMS: See history of present illness. Is positive for shortness of breath with shiveri ng last night, diarrhea, and abdominal discomfort since Saturday. Is negative for chest pain, pressure , heaviness, orthopnea, or PND. No recent changes in medications. No decline in functional ability and all other 14-point review of systems was negative. PHYSICAL EXAM: The patient is 5 feet 10 inches, weighs 178 pounds with a BMI of 25. Vital signs on arrival to the emergency room at 2:30 this morning, blood pressure 122/67, pulse was 122, temperature 103, and respiratory rate 16. At this time of my exam, blood pressure was 86/50 , pulse was 93 and irregular, respiratory rate 20, oxygen saturations 97%, and temperature 98 degrees Fahrenheit. General Appearance: Older gentleman, lying in bed, family is surrounding him. A 2 pil lows at 20 degrees, appeared comfortable and calm. Psychologically pleasant and cooperative. Neurol ogically awake, alert, and oriented to person, place, and time. Cranial nerves II through XII intact. Grossly normal sensory and motor function in the upper and lower extremities. Gait not checked. M oves normally in bed. Skin: Warm, dry. No cyanosis. HEENT: Pupils are equal and round. Mucous me mbranes moderately moist. Neck without increased JVP or lymphadenopathy. Breath sounds were clear w ith good effort. No wheezes, rales, or rhonchi. Coronary: S1 and S2. Irregularly irregular without murmurs or rubs. Abdomen: Active bowel sounds, soft, no guarding. No epigastric discomfort. Lowe r extremities were free of edema with strong 2 to 3+ posterior tibial pulses that are symmetrical. DIAGNOSTIC STUDIES/LAB DATA: From 6 a.m. white count 12.8, hematocrit 37, platelets 100 (decreased f rom 113), INR 1.14, PTT 27. Sodium 142, potassium 3.2, chloride 100, bicarb 17, anion gap of 9, BUN 32, creatinine 1.8, glucose 106, AST 15, ALT 11. Troponin #1 of 0.07, troponin #2 of 0.32, and tropo estelita #3 of 0.34. C- reactive protein 24, TSH 1.29. Studies: EKG on arrival at 2:46 in the morning today 06/07/18 shows sinus tachycardia at 118 beats p er minute, QRS axis -30, normal AV and IV conduction times. He has some mild ST depression in the la teral leads, I, and aVL. EKG done at 7:52 this morning shows atrial fibrillation with a ventricular rate of 110 beats per tonja te, QRS axis -15, normal interventricular conduction times and normal FTs in all leads. Chest x-ray from 2:48 a.m. showed no active pulmonary disease. CT of the abdomen at 2:49 a.m. shows 1.9 cm calcific density in the distal ileum. Possible gallstone or ingested foreign body, dilated loops of small bowel proximally consistent with partial small bowel obstruction. Gallbladder was dilated with multiple gallstones. Lipid panel from 01/04/18 shows total cholesterol 113, triglycerides 135, LDL cholesterol 54, and HDL cholesterol 32. IMPRESSION AND PLAN: In summary, Mr. Sam is an 83-year-old gentleman with a long-standing history of Crohn's disease with 5 days of gastrointestinal symptoms, admitted with evidence of partial small bowel obstruction and concern for which may be gallstone induced with a septic picture with low bloo d pressure, tachycardia, shaking, chills. The patient's cardiac concerns include mild elevation in troponins with subtle ST depression in 2 lat eral leads only, which has resolved and he has asymptomatic paroxysmal atrial fibrillation, which occ urred since admission, but he could possibly have been in and out of this. For the paroxysmal atrial fibrillation, I recommended unfractionated heparin to minimize stroke risk and this can be stopped easily if the patient needs to go to surgery. We will need to follow platele ts as they are already a little low. For the patient elevated troponins, this could be on the basis of paroxysmal atrial fibrillation, it could be from silent ischemia or his shortness of breath last night could have been an anginal equiva lent, but he does not have a significant amount of atherosclerotic risk factors. His atherosclerotic risk would include his hypertension and underlying inflammatory (Crohn's disease) , but he is negative for diabetes, he has not smoked in 20 years, and he remains active, so in terns of perioperative risk, I think he is a good perioperative candidate. If his blood pressure stabilize s with hydration, you could consider adding a low-dose beta marge for atrial fibrillation and rate control. However, right how, his tachycardia is probably appropriate for his septic picture and dehy dration from not eating for 5 days. So, options to protect the heart from what is probably demand/type 2 ischemia would be beta-blockade, aspirin 81 mg a day, and optimization of his underlying abdominal disorder. We are looking to get an echo to look at his ejection fraction and look for wall motion abnormalities and ensure there is not a pericardial effusion. I would keep his potassium between 4 and 4.5, he might revert to sinus rhythm spontaneously with impr ovement in his metabolic condition, normalization of bicarb, potassium will aid. We will continue to follow troponin and EKG serially, but his second EKG showing normalization of ST depression in the lateral leads is reassuring. I do not recommend an urgent heart catheterization as he is septic and infected and without obvious a ngina and improved EKGs. Right now, I am not recommending any preoperative stress test. Further recommendations will be made pending his clinical course in response to the above medical man agement and how he fairs clinically with some acute and supportive care. [id number]/[facility] #: [id number]
--- NOTE | 2018-06-07 16:24 | CONS ---
CC: [facility]; Dr. Chava Gallo; Dr. Victor Manuel Bello SURGICAL CONSULTATION REPORT: DATE OF CONSULT: HISTORY OF PRESENT ILLNESS: I was contacted by the hospitalists service to evaluate Mr. Sam, an [age]-year-old gentleman with history of Crohn's disease, who was admitted overnight with a concern for a small bowel obstruction, possibly due to calcification in the distal ileum and a concern for the pos sibility of gallstone ileus. Mr. Sam has been suffering with intermittent abdominal pain and nausea for almost a half a year no w. This rarely leads to vomiting, but on this occasion, it did and for this reason, the patient pres ented to the hospital at approximately mid- night this morning. Workup in the ER included a CAT scan as well as labs. He was admitted to the hospitalists service on n.p.o. status. When I saw the patient, he had no complaints, he had no abdominal pain, and no nausea. He had mild a ppetite. He was passing flatus. His last bowel movement was last night. The patient said if symptoms will come on, the patient will often lie down or rest his bowels and the y will improve without any intervention. They will sometimes come with pain, but mostly, they will c ome with abdominal distention. On this occasion, there was abdominal pain that has since resolved. Pain is nonradiating. PAST MEDICAL HISTORY: Crohn's disease, diagnosed multiple years ago and takes Delzicol regularly. Lane dowd did undergo ileal resection at the age of 21 and this was done in [facility] when he was in the [facility]. This was performed along with an appendectomy and primary anastomosis, and the patient did well up until approximately 20 years ago at the age of 62, he required a colon resection with temporary il eostomy that was ultimately reversed. No other abdominal surgeries. SOCIAL HISTORY: He lives with his family. He is a nonsmoker. Retired. REVIEW OF SYSTEMS: No shortness of breath or chest pain. Resolved abdominal pain. Nausea and vomiti ng resolving as described above. Abdominal bloating. No obstipation. No current constipation, last bowel movement last night. The patient had a colonoscopy within the last couple of years. He was t old he had gallstones, but does not have a history of biliary colic. No endocrine disorders. No ble eding or clotting disorders. No psychiatric or other neurologic diseases. PHYSICAL EXAM: The patient is afebrile and vital signs are stable. Alert and oriented x3, in no brissa arent distress. Head, Ears, Eyes, Nose, and Throat: Normocephalic and atraumatic. Sclerae anicteric. Mucous membranes are moist. Neck: No lymphadenopathy. Abdomen is soft, nondistended, nontender. Well-healed surgical incision. Mild diastasis at the upper abdomen with small incisional hernia in t he mid aspect. Well-healed right lower quadrant incision from ileostomy site. Rectal exam not perfo rmed. Extremities within normal limits. DIAGNOSTIC STUDIES/LAB DATA: Lab show a white count of 7.8 on arrival, has gone up to a 12.8 with le ft shift. The patient had elevated troponins upon arrival and these did continue to go up and now th ey have finally stayed levelled just below 0.3. The patient has elevated creatinine, but this is not far from the patient's baseline. The patient underwent a CAT scan of the abdomen and pelvis. These images were reviewed, did show rickey cified gallstones in the gallbladder, no pneumobilia, showed a calcification at distal ileum, but wit hout any evidence of obstruction secondary to this. No free air. No free fluid. IMPRESSION: An 83-year-old gentleman with a history of Crohn's disease, on regular NSAIDs for this p urpose, who presented with worsening abdominal pain and nausea and vomiting that has since started to resolve. This could be secondary to Crohn's exacerbation versus the possibility of a partial small bowel obstruction, which I feel is less likely. There is a small possibility of biliary colic, but t he patient does not seem to have right upper quadrant pain, but this may give potential for a demand ischemia that is suggestive of the mildly elevated troponin level. Additionally, the patient may hav e some mesenteric angina, which could lead to some of these symptoms along with elevated white blood cell count. I do not recommend surgical intervention at this time, both with the patient's resolutio n of the symptoms as well as elevation of troponins did not seem reasonable. 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 I do not think this calcification within the intestine requires removal, but this is potential for the patient's intermittent bloating. I discussed this with the pa duarte and the family. I said that I would see him on Saturday and I will get an opportunity to talk to Dr. Gallo regarding his care. Again, no surgical intervention required and the hospitalists junaid pratt is aware of this current plan. [id number]/[facility] #: [id number]
--- NOTE | 2018-06-07 20:41 | CONS ---
CC: Dr. Bello * CONSULTATION REPORT: DATE OF CONSULT: 06/07/18 REQUESTING PHYSICIAN: Dr. Cleaning. INDICATION: Abdominal pain. NARRATIVE: Mr. Sam is a very pleasant 83-year-old gentleman well known to myself. I have been taking care of him for Crohn disease for many years. The patient states that last night he felt very ill. He developed distended abdomen , abdominal pain, and vomited. He then came to the emergency room. In the emergency room, he was found to be in AFib, was admitted to the hospital. He did have a CT, which showed a possible small bowel obstruction potentially secondary to a calcified gallstone stuck in the ileocecal region. The patient does have a long history of Crohn's. He did have surgery when he was 21 years of age in [facility] which time part of his ileum and colon were removed. He has had multiple colonoscopies, approximately every 3 to 4 years over the past many years for dysplasia screening. His anastomosis has always been very stenotic, and myself and another planting supervisor have been unable to intubate in the past. The patient describes, over the past few months, intermittent symptoms of abdominal distention, nausea, pain that is usually relieved with either vomiting or simply time. Currently, he is feeling better. He denies any abdominal pain. He has been seen by Cardiology for his atrial fibrillation. He has been seen by Surgery who does not feel that there are any acute surgical interventions required. PAST MEDICAL HISTORY: Includes hypertension, BPH, small bowel obstruction, chronic renal insufficiency, and Crohn disease. PAST SURGICAL HISTORY: Includes tonsillectomy, appendectomy, exploratory laparotomy, ileocecectomy. MEDICATIONS: Upon admission include: 1. Allopurinol. 2. Amlodipine. 3. Asacol. 4. Flonase. ALLERGIES: None. FAMILY HISTORY: No inflammatory bowel disease in the family. SOCIAL HISTORY: Quit smoking many years ago. No IV drug use. Rare alcohol use. REVIEW OF SYSTEMS: Twelve systems were reviewed and other than that mentioned in the HPI were unremarkable. PHYSICAL EXAM: Temperature upon presentation was 103. He is afebrile at this point. Blood pressure is 120/65, pulse is 70. General: Well-appearing elderly male, in no apparent distress, appears his stated age, alert, oriented, pleasant, fluent. HEENT: Mucous membranes are moist without lesions, ulcers, or exudate. Neck is supple. Trachea is midline. Head is normocephalic and atraumatic. Heart: Irregular rate and rhythm. No murmurs, rubs, or gallops. Lungs: Clear to auscultation bilaterally. No wheezes, rales, or rhonchi. Abdomen: Positive bowel sounds. Soft, nontender, and nondistended. No hepatosplenomegaly, masses, rebound, or guarding. No high-pitched bowel sounds. Skin is warm and dry. DIAGNOSTIC STUDIES/LAB DATA: Labs of note, white count is 12.8, up from 7.8; hemoglobin is 12.4; platelets of 100,000. INR is 1.14. His LFTs are unremarkable. BUN is 32, creatinine is 1.77. Troponin peaked at 0.34, has come down to 0.29 at this point. He also has a CT abdomen and pelvis, which reveals 1.9 cm calcified density noted in the distal ileum, which may represent a gallstone or ingested foreign body, dilated loops of small bowel proximally measuring 2.6 cm. Findings are concerning for partial small bowel obstruction versus ileus. Cholelithiasis with multiple gallstones, the largest of which is 1.2 cm. ASSESSMENT AND PLAN: This is a very pleasant 83-year-old gentleman with a couple of issues at this point. He does have some sort of a calcified density at this ileocolonic anastomosis. I am not sure if this is a gallstone, calcified granuloma, or tumor or scarring. Looking back at previous CTs going back to 2013, I do not see it visualized there. The patient's symptoms over the past couple of months do sound somewhat suggestive of intermittent partial small bowel obstructions. I do wonder if this could be a calcified gallstone that did pass at some point in the past that is now acting as a ball valve mechanism at his ileocolonic anastomosis causing partial small bowel obstructions. Unfortunately, we have not been able to intubate his terminal ileum during colonoscopies in the past, I do not think we will be able to in the future either. I do wonder if other imaging tests such as an MR enterography may shed more light on this area. His LFTs are unremarkable. It does not appear that he has acute cholecystitis. His atrial fibrillation is being managed by the cardiac service. We will continue to follow along from the GI standpoint to best determine if and what we need to do about the lesion found in his distal terminal ileum. [id number]/[facility] #: [id number] GLENNY
--- NOTE | 2018-06-07 22:05 | CONS ---
CRITICAL CARE CONSULTATION: DATE OF CONSULT: 06/07/18 REASON FOR CONSULT: Possible septic shock. HISTORY OF PRESENT ILLNESS: This patient is an 83-year-old white male with history of Crohn's disease who was admitted last evening with a fever, diarrhea , and possible small bowel obstruction, along with multiple gallstones and a calcified density in the distal ileum. Patient was admitted to the floor, but developed atrial fibrillation with soft blood pressure, was transferred to the intensive care unit. On arriving to the ICU, the patient seemed comfortable, in no acute distress. Patient did claim that he had some abdominal pain earlier in the day, but it had since resolved. MEDICATIONS: On admission to the ICU included: 1. Zosyn. 2. Diltiazem. 3. Heparin by IV infusion. 4. Zofran. 5. IV Protonix. PHYSICAL EXAM: Temp was 99.9, heart rate was 86 with blood pressure 124/75, O2 sat 94% on 2 L nasal cannula. Lungs: Clear. Abdomen: Not distended. Cardiac exam revealed a regular rhythm. No murmurs, rubs, or gallops. Extremities were not cyanotic and not edematous. DIAGNOSTIC STUDIES/LAB DATA: Relevant laboratory data, white count was 12.8, hemoglobin 12.4, potassium 3.2, creatinine 1.7, albumin 3.1, troponin 0.32, repeat 0.34. Electrocardiogram from early afternoon on the day of ICU admission revealed normal sinus rhythm. IMPRESSION: Patient's clinical condition at the present time does not suggest sepsis (i.e. patient is afebrile, not tachycardic or tachypneic, etc). It is possible that a patient had a gallstone ileus, however, the size of the calcification appears to be too large pass through common bile duct. Patient does state that the character of the pain was similar to that associated with exacerbation of the Crohn's disease and that is a distinct possibility here. MANAGEMENT PLAN: For now, we will continue with fluids and antibiotics. Considering that the atrial fibrillation has resolved and that was the patient' s first episode of AFib, we will ask Cardiology about the necessity of continuing the heparin infusion. Vasopressors not necessary at this time. CRITICAL CARE TIME: 60 minutes. [id number]/[facility] #: [id number] [facility]INE HOSPITALPriscila
[2018-06-08] MEDS: Piperacillin/Tazobac ADVAN(*) 3.375 GM in NS 0.9% 100 ML* 100 ML IVPB SCH ×3 (00:19→17:44)
[2018-06-08] MEDS: Pantoprazole IV* 40 MG IV SCH (04:54)
[2018-06-08 05:27] LABS: Hematocrit 35 % (42-52); Hemoglobin 11.8 g/dl (14.0-18.0); Mean Corpuscular HGB Conc 34 g/dl (31-36); Mean Corpuscular Hemoglobin 29 pg (27-31); Mean Corpuscular Volume 85 fL (80-94); Mean Platelet Volume 8.5 fL (7.4-10.4); Platelet Count 82 10^3/ul (150-450); Red Blood Count 4.13 10^6/ul (4.00-5.40); Red Cell Distribution Width 14 % (10.5-15)
[2018-06-08 05:37] LABS: EGFR Non-African American 43.2 (>60)
[2018-06-08 05:55] LABS: ABS Basophils 0.1 10^3/ul (0-0.2); ABS Eosinophils 0.1 10^3/ul (0-0.6); ABS Lymphocytes 0.4 10^3/ul (1.0-4.8); ABS Monocytes 0.3 10^3/ul (0-0.8); ABS Neutrophils 5.1 10^3/ul (1.5-7.7); ABS Nucleated RBC 0 10^3/ul; Eosinophil % 1.6 % (0-6); Lymphocyte % 7.2 % (25-47); Nucleated Red Blood Cells % 0
--- NOTE | 2018-06-08 08:52 | PN ---
Progress Note - Progress Note Date of Service: 06/08/18 SOAP: Subjective: [] feels well, no abd pain, distention, n/v; +small bms Objective: []98.9, 122/63,96%, 53 nad, alert +bs, softly distended, nontender Assessment: []83 yo male admitted with sepsis, abd pain, ?gallstone ileus, cholelithiasis, afib. Gallstone ileus vs other calcified lesion; if gallstone, ?acting as ballvalve mech with ileocolonic anast causing intermittent pSBOs; need to try to figure out if gallstone (1.9cm) vs other; have never been able to intubate anast during colonoscopy x >20 years; MRE may offer more info; plan for tomorrow; may need surgery to remove Chava Gallo MD Plan: []
[2018-06-08] MEDS: Fluticasone NASAL SPRAY 50MCG* 16 gm SPRAY BTL INTRANASAL SCH (09:06)
[2018-06-08] MEDS: Heparin DRIP 25,000 UNITS(*) 25,000 UNITS/500 ML BAG IV SCH (09:30)
[2018-06-08] MEDS ORDERED: Diltiazem IV VIAL* 125 MG in NS 0.9% 100 ML* 100 ML IVPB SCH (09:30)
--- NOTE | 2018-06-08 10:05 | PN ---
Subjective Date of Service: 06/08/18 - CC: abdominal discomfort, elevated Troponins Interval History: No awareness of heart. No chest pain or SOB. Able to drink and eat a bit w/o abdominal problems. Medications Active Medications: Acetaminophen (Tylenol Supp*) 650 mg RI Q4H PRN PRN Reason: Pain/fever Fluticasone Propionate (Flonase Nasal [place] 50mcg*) 1 spray INTRANASAL DAILY [facility] Last Admin: 06/08/18 09:06 Dose: 1 spray Heparin Sodium (Porcine) (Heparin Vial(*)) 0 units IV .BOLUS PRN PRN Reason: PER HEPARIN DRIP PROTOCOL Last Admin: 06/07/18 10:00 Dose: 5,900 units Piperacillin Sod/Tazobactam (Sod 3.375 gm/ Sodium Chloride) 100 mls @ 25 mls/ hr IVPB Q8H [facility] Last Admin: 06/08/18 09:06 Dose: 25 mls/hr Lactated Ringer's (Lactated Ringers 1000 Ml Bag*) 1,000 mls @ 0 mls/hr IV WIDE OPEN [facility] Stop: 06/08/18 11:01 Last Admin: 06/07/18 12:11 Dose: 999 mls/hr Nft: Azelastine Hcl ([Astelin] 137 Mcg) 137 mcg NASAL BID PRN PRN Reason: CONGESTION Ondansetron HCl (Zofran Inj*) 4 mg IV Q6H PRN PRN Reason: NAUSEA Pantoprazole Sodium (Protonix Iv*) 40 mg IV Q24H [facility] Last Admin: 06/08/18 04:54 Dose: 40 mg Prochlorperazine Edisylate (Compazine Inj*) 5 mg IV Q6H PRN PRN Reason: NAUSEA/VOMITING Objective Vital Signs: Temp Pulse Resp BP Pulse Ox 98.9 F 58 18 116/52 97 06/08/18 03:30 06/08/18 09:01 06/08/18 09:01 06/08/18 09:00 06/08/18 09:01 Oxygen Devices in Use Now: None Appearance: elderly male, seated, appears comfortable. Eyes: No Scleral Icterus, PERRLA Ears/Nose/Mouth/Throat: Clear Oropharnyx, Mucous Membranes Moist Neck: NL Appearance and Movements; NL JVP, Trachea Midline Respiratory: Symmetrical Chest Expansion and Respiratory Effort, Clear to Auscultation Cardiovascular: RRR - soft systolic murmur apex. Abdominal: No Hepatosplenomegaly - active bowel sounds, soft. Extremities: No Edema, No Clubbing, Cyanosis Skin: No Rash or Ulcers Neurological: Alert and Oriented x 3 Lines/Tubes/Other Access: Clean, Dry and Intact Peripheral IV Laboratory Results: 06/08/18 05:00 06/08/18 09:05 INR (Anticoag Therapy) 1.14 (0.77-1.02) H 06/07/18 03:09 APTT 59.1 seconds (26.0-36.3) H 06/08/18 08:42 Total Bilirubin 1.00 mg/dL (0.2-1.0) 06/08/18 05:00 AST 17 U/L (13-39) 06/08/18 09:05 ALT 11 U/L (7-52) 06/08/18 05:00 Alkaline Phosphatase 45 U/L (34-104) 06/08/18 05:00 B-Natriuretic Peptide 16 pg/mL (<=100) 06/07/18 03:09 Total Protein 5.0 g/dL (6.4-8.9) L 06/08/18 05:00 Albumin 2.8 g/dL (3.2-5.2) L 06/08/18 05:00 Globulin 2.2 g/dL (2-4) 06/08/18 05:00 Albumin/Globulin Ratio 1.3 (1-3) 06/08/18 05:00 TSH 1.29 mcIU/mL (0.34-5.60) 06/07/18 03:09 06/07/18 06/07/18 06/07/18 03:09 06:13 09:32 Troponin I 0.07 H* 0.32 H* 0.34 H* 06/07/18 06/07/18 12:46 17:13 Troponin I 0.29 H* 0.28 H* Diagnostic Imaging: Echo 06/08/18: no wall motion abnormalities, EF 50-55%, DD, normal RV systolic function, mild MR, MAC, mild TR. PApr 37 mmHg. EKG Data: Monitor: converted and maintaining NSR. Assessment/Plan 83 yo admitted with GI c/o, shivering and SOB admitted with poss. Gall stone partial bowel obstruction in setting of Crohn's and distant surgery. Improving with IVF, time, antibiotics. No surgery planned imminently. Troponins mildly elevated, no anginal symptoms and paroxsymal atrial fibrillation, asymptomatic. Afib: Could be a reason for troponin elevation. Keep electrolytes optimized. Consider adding Toprol 25 mg/day now that BP is stabilized. I recommend anticoagulation due to age and HTN (CHADs 2 score) and asymptomatic afib, but low platelets noted. Needs short acting for now incase of procedure or surgery. Troponin elevation: Most likely PAF or demand ischemia. ECG and echo are reassuring. Medical management for now, beta marge as above. Non urgent stress test could be performed.
[2018-06-08] MEDS ORDERED: Potassium Chlor TAB* 20 MEQ TAB.ER PO ONE (10:10)
[2018-06-08] MEDS: Enoxaparin(*) 80 MG/0.8 ML SYR SUBCUT SCH ×2 (10:45→22:30)
--- NOTE | 2018-06-08 12:57 | PN ---
Subjective Date of Service: 06/08/18 Interval History: HOSPITALIST PROGRESS NOTE Patient seen and examined at bedside. Care reviewed and d/w Palmira Luke RN. He feels improved today. Tolerating full liquid diet with no further N/V, had a small BM and passed gas this AM. Unaware he converted to NSR. No further episodes of shivering or dyspnea. Family History: Unchanged from Admission Social History: Unchanged from Admission Past Medical History: Unchanged from Admission Objective Active Medications: Acetaminophen (Tylenol Supp*) 650 mg DC Q4H PRN PRN Reason: Pain/fever Enoxaparin Sodium (Lovenox(*)) 80 mg SUBCUT Q12H [facility] Last Admin: 06/08/18 10:45 Dose: 80 mg Fluticasone Propionate (Flonase Nasal [place] 50mcg*) 1 spray INTRANASAL DAILY [facility] Last Admin: 06/08/18 09:06 Dose: 1 spray Piperacillin Sod/Tazobactam (Sod 3.375 gm/ Sodium Chloride) 100 mls @ 25 mls/ hr IVPB Q8H [facility] Last Admin: 06/08/18 09:06 Dose: 25 mls/hr Lactated Ringer's (Lactated Ringers 1000 Ml Bag*) 1,000 mls @ 100 mls/hr IV ONCE ONE Stop: 06/08/18 20:08 Last Admin: 06/08/18 10:35 Dose: 100 mls/hr Nft: Azelastine Hcl ([Astelin] 137 Mcg) 137 mcg NASAL BID PRN PRN Reason: CONGESTION Ondansetron HCl (Zofran Inj*) 4 mg IV Q6H PRN PRN Reason: NAUSEA Pantoprazole Sodium (Protonix Iv*) 40 mg IV Q24H [facility] Last Admin: 06/08/18 04:54 Dose: 40 mg Prochlorperazine Edisylate (Compazine Inj*) 5 mg IV Q6H PRN PRN Reason: NAUSEA/VOMITING Vital Signs - 8 hr 06/08/18 06/08/18 06/08/18 05:00 05:01 05:30 Temperature Pulse Rate 61 61 62 Respiratory 22 22 20 Rate Blood Pressure 118/57 108/50 (mmHg) O2 Sat by Pulse 96 96 97 Oximetry 06/08/18 06/08/18 06/08/18 06:00 06:01 06:30 Temperature Pulse Rate 60 62 64 Respiratory 19 20 19 Rate Blood Pressure 122/54 125/53 (mmHg) O2 Sat by Pulse 98 98 98 Oximetry 06/08/18 06/08/18 06/08/18 07:00 07:01 07:30 Temperature Pulse Rate 56 56 54 Respiratory 21 20 20 Rate Blood Pressure 115/59 122/63 (mmHg) O2 Sat by Pulse 96 97 96 Oximetry 06/08/18 06/08/18 06/08/18 08:00 08:30 08:51 Temperature Pulse Rate 58 Respiratory 24 22 Rate Blood Pressure 110/74 (mmHg) O2 Sat by Pulse 96 96 Oximetry 06/08/18 06/08/18 06/08/18 09:00 09:01 09:31 Temperature Pulse Rate 58 58 64 Respiratory 19 18 24 Rate Blood Pressure 116/52 89/77 (mmHg) O2 Sat by Pulse 96 97 96 Oximetry 06/08/18 06/08/18 06/08/18 10:00 10:01 10:18 Temperature 99.7 F Pulse Rate 62 63 Respiratory 24 22 Rate Blood Pressure 124/59 (mmHg) O2 Sat by Pulse 97 97 Oximetry 06/08/18 06/08/18 10:30 11:33 Temperature 98.3 F Pulse Rate 57 59 Respiratory 22 20 Rate Blood Pressure 112/60 114/53 (mmHg) O2 Sat by Pulse 98 99 Oximetry Oxygen Devices in Use Now: None Appearance: Pleasant elderly gentleman lying in bed in NAD. Eyes: No Scleral Icterus Ears/Nose/Mouth/Throat: Mucous Membranes Moist Neck: Trachea Midline Respiratory: Symmetrical Chest Expansion and Respiratory Effort, Clear to Auscultation Cardiovascular: RRR - Normal S1 and S2 Abdominal: - - Soft, NT, ND, BS+ and increased Neurological: Alert and Oriented x 3, NL Muscle Strength and Tone Result Diagrams: 06/08/18 05:00 06/08/18 09:05 Microbiology and Other Data: Microbiology 06/07/18 11:50 Urine Culture - Final Urine No Growth (<1,000 CFU/mL) 06/07/18 03:09 Aerobic Blood Culture - Preliminary Blood Venous No Growth Day 1 Anaerobic Blood Culture - Preliminary No Growth Day 1 06/07/18 03:09 Aerobic Blood Culture - Preliminary Blood Venous No Growth Day 1 Anaerobic Blood Culture - Preliminary No Growth Day 1 06/07/18 11:50 Nasal Screen MRSA (PCR) - Final Nasal Mrsa Not Detected Assess/Plan/Problems-Billing Assessment: Mr Sam is a 83yo M with PMH of Crohn's disease s/p ileal resection age 21 and right colectomy with colostomy and reversal age 63, HTN, AGUSTÍN not o CPAP, BPH , Gout, who presented to ED with c/o nausea vomiting, found to have pSBO. - Patient Problems (1) Severe sepsis Comment: - Patient's presentation compatible with sepsis with fever and tachycardia. - Source is GI (enteritis - infectious vs Crohn's). - Critical care input much appreciated. (2) Atrial fibrillation Comment: - Converted spontaneously and had significant improvement of clinical condition and BP after that. - Awaiting echocardiogram. - D/w Cardiology (Dr Anderson) - as patient is unaware of Afib, there is concern he may have been in and out of it for some time. Recommendation is to d/c heparin drip, start Lovenox and continue with a NOAC on discharge for 4 weeks. She plans for event monitor as outpatient to then decide about discontinuation of AC. - Keep K>4.0 and Mg>2.0. (3) AGUSTÍN (obstructive sleep apnea) Comment: - As per night RN "Pt noted to have episodes of apnea while sleeping with desaturation in mid to high 80's, 2L of O2 via NC applied with good results , O2 saturations >90%." - Suspect AGUSTÍN - will check overnight oximetry and will need sleep study as outpatient. - Nocturnal hypoxia may be playing a role on Afib. (4) SBO (small bowel obstruction) Comment: - CT showed a 1.9 cm calcific density noted in the distal ileum with proximal dilated loops of small bowel concerning for pSBO. - This calcification could be a gallstone, but he does not have pneumobilia or other signs suggestive of fistula, although with Crohn's a fistula is always possible. This could also be a calcified tumor or even surgical change from prior surgery (ileal surgery when he was 21yo). - GI and Surgery input appreciated - plan for MRI enterography tomorrow. - Continue Zosyn #2. - Obstruction appears to be resolved at this time, but he has had months of self limited episodes of abdominal pain and distention, N/V, suggesting recurrent pSOB, maybe related to this terminal ileu calcified lesion. (5) Elevated troponin Comment: - Likely secondary to demand ischemia in the setting of severe sepsis and Afib RVR. - Low dose Aspirin. - Awaiting echo. (6) VANESSA (acute kidney injury) Comment: - Pre renal in the setting of dehydration due to N/V, but also associated with sepsis. - Improving. - Urine output is good. - Continue IVF and monitor. (7) Hypomagnesemia Comment: - Replete. (8) DVT prophylaxis Comment: - Lovenox. (9) Full code status Status and Disposition: Inpatient. Transfer to Telemetry floor. Son updated at bedside.
[2018-06-08] MEDS ORDERED: Magnesium Sulfate IV* 3 GM in NS 0.9% 100 ML* 100 ML IVPB ONE (13:30)
--- NOTE | 2018-06-08 13:44 | ECHO ---
Patient: JAMAR FONG [facility] Rec#: [id number] : 1935 Date: 06/08/2018 Age: 83y Height: 178 cm / 70.1 in Weight: 81 kg / 178.5 lbs Sex: M BSA: 1.99 Room#: [facility] Admit Date#: 06/07/2018 Type: Inpatient Referring: Kalie Dior MD Reading: Uyen Anderson MD Block Bolter Mule Operator: Virginia Bonilla RDCS CC: Victor Manuel Bello MD Transthoracic Echocardiogram Indication: A-fib BP: 112/60 HR: 76 Rhythm: NSR with PACs Findings History: Former smoker, HTN, AGUSTÍN. Technical Comments: The study quality is fair. Completed a 1246 Left Ventricle: The left ventricular chamber size is normal. There is no left ventricular hypertrophy. Global left ventricular wall motion and contractility are within normal limits. There is normal left ventricular systolic function. The estimated ejection fraction is 50-55%. There is no consistent Doppler evidence of clinically significant diastolic dysfunction. Abnormal left ventricular diastolic filling is observed, consistent with impaired relaxation. Left Atrium: The left atrium is mildly dilated. Right Ventricle: Moderator Band present. The right ventricle is mildly dilated. The right ventricular global systolic function is normal. Right Atrium: The right atrium is mildly dilated. Aortic Valve: The aortic valve is trileaflet. The aortic valve leaflets are mildly thickened. There is a trace of aortic regurgitation. There is no evidence of aortic stenosis. Mitral Valve: There is mitral annular calcification. The mitral valve leaflets are mildly thickened. There is mild mitral regurgitation. There is no evidence of mitral stenosis. Tricuspid Valve: The tricuspid valve leaflets are normal. There is mild tricuspid regurgitation. The right ventricular systolic pressure is estimated at 37 mmHg. There is evidence of mild pulmonary hypertension. There is no tricuspid stenosis. Pulmonic Valve: The pulmonic valve appears normal. There is mild to moderate pulmonic regurgitation. There is no pulmonic stenosis. Pericardium: There is no significant pericardial effusion. A pericardial fat pad is visualized. Aorta: There is mild dilatation of the ascending aorta. The aortic arch is not well visualized. The aortic root is normal in size. Pulmonary Artery: The main pulmonary artery appears normal. Venous: The inferior vena cava is dilated. There is a greater than 50% respiratory change in the inferior vena cava dimension. Conclusions The left ventricular chamber size is normal. Global left ventricular wall motion and contractility are within normal limits. The estimated ejection fraction is 50-55%. Abnormal left ventricular diastolic filling is observed, consistent with impaired relaxation. The right ventricle is mildly dilated and RV systolic function is normal. There is a trace of aortic regurgitation with mild sclerosis. There is mitral annular calcification with mild mitral regurgitation. There is mild tricuspid regurgitation. There is evidence of mild pulmonary hypertension estimated at 37 mmHg. There is mild to moderate pulmonic regurgitation. No prior echo available to compare. Measurements Name Value Normal Range RVIDd (AP) 2D 3.3 cm (0.9 - 2.6) RVDdMajor (2D) 4.6 cm (2.2 - 4.4) RAd ISD 4CH 5.2 cm (3.4 - 4.9) RA (A4C)W 4.3 cm (2.9 - 4.6) IVSd (2D) 1 cm (0.6 - 1) LVPWd (2D) 0.8 cm (0.6 - 1) LVIDd (2D) 4.2 cm (3.6 - 5.4) LVIDs (2D) 2.8 cm - LV FS (2D) 33 % (25 - 45) Aortic Annulus 1.9 cm (1.4 - 2.6) Ao root diameter (2D) 3.4 cm (2.1 - 3.5) Ascending Ao 3.6 cm (2.1 - 3.4) LA dimension (AP) 2D 4.3 cm (2.3 - 3.8) LAd ISD 4CH 5.8 cm (2.9 - 5.3) LA ISD 4CH W 4.1 cm (2.5 - 4.5) Name Value Normal Range LA ESV BP (A/L) index 24 ml/m2 - Name Value Normal Range MV E-wave Vmax 1.1 m/sec - MV deceleration time 257 msec - MV A-wave Vmax 1.2 m/sec - MV E:A ratio 0.9 ratio - LV septal e' Vmax 0.05 m/sec - LV lateral e' Vmax 0.09 m/sec - LV E:e' septal ratio 22 ratio - LV E:e' lateral ratio 12.2 ratio - Name Value Normal Range AV Vmax 1.2 m/sec - AV VTI 25.3 cm - AV peak gradient 6 mmHg - AV mean gradient 3 mmHg - LVOT Vmax 1.1 m/sec - LVOT VTI 21.9 cm - LVOT peak gradient 5 mmHg - LVOT mean gradient 2 mmHg - PEREZ Vmax 0.7 m/sec - Name Value Normal Range TR Vmax 2.7 m/sec - TR peak gradient 29 mmHg - RAP 8 mmHg - RVSP 37 mmHg - IVC diameter 2.2 cm - Name Value Normal Range PV Vmax 1.1 m/sec - PV peak gradient 5 mmHg - UT end-diastolic Vmax 1.3 m/sec - PA end-diastolic pressur6 mmHg -
[2018-06-08] MEDS: Aspirin EC TAB* 81 MG TAB.EC PO SCH (14:08)
[2018-06-08 18:33] LABS: Urine Appearance Cloudy; Urine Blood 3+ (Negative); Urine Ketones Negative (Negative); Urine Protein 1+(30 mg/dL) (Negative); Urine Red Blood Cell 3+(>10/hpf) (Absent); Urine Specific Gravity 1.016 (1.010-1.030); Urine Urobilinogen Negative (Negative); Urine White Blood Cell 3+(>20/hpf) (Absent)
[2018-06-08 18:39] LABS: Urine Color Red
[2018-06-09] MEDS: Piperacillin/Tazobac ADVAN(*) 3.375 GM in NS 0.9% 100 ML* 100 ML IVPB SCH ×3 (00:57→17:22)
[2018-06-09] MEDS: Pantoprazole IV* 40 MG IV SCH (04:49)
[2018-06-09 06:12] LABS: ABS Basophils 0 10^3/ul (0-0.2); ABS Eosinophils 0.1 10^3/ul (0-0.6); ABS Lymphocytes 0.8 10^3/ul (1.0-4.8); ABS Monocytes 0.5 10^3/ul (0-0.8); ABS Nucleated RBC 0 10^3/ul; Eosinophil % 2.2 % (0-6); Hematocrit 37 % (42-52); Hemoglobin 12.4 g/dl (14.0-18.0); Lymphocyte % 17.9 % (25-47); Mean Corpuscular HGB Conc 34 g/dl (31-36); Mean Corpuscular Hemoglobin 28 pg (27-31); Mean Corpuscular Volume 84 fL (80-94); Mean Platelet Volume 7.9 fL (7.4-10.4); Nucleated Red Blood Cells % 0.1; Platelet Count 89 10^3/ul (150-450); Red Blood Count 4.37 10^6/ul (4.00-5.40); Red Cell Distribution Width 14 % (10.5-15); White Blood Count 4.3 10^3/ul (3.5-10.8)
[2018-06-09 06:26] LABS: EGFR Non-African American 44.2 (>60)
[2018-06-09] MEDS ORDERED: Magnesium Sulfate 2 GM IV* 2 GM/50 ML BAG IVPB ONE (06:52)
[2018-06-09] MEDS: Fluticasone NASAL SPRAY 50MCG* 16 gm SPRAY BTL INTRANASAL SCH (09:23)
[2018-06-09] MEDS ORDERED: Gadoteridol* (CONTRAST) 279.3 MG/ML 10 ML IV ONE (09:48)
[2018-06-09] MEDS ORDERED: Glucagon* 1 MG VIAL ONE (10:07)
[2018-06-09] MEDS: Enoxaparin(*) 80 MG/0.8 ML SYR SUBCUT SCH ×2 (11:29→23:19)
--- NOTE | 2018-06-09 14:24 | PN ---
Progress Note - Progress Note Date of Service: 06/09/18 Note: long d/w pt, , dtr......45 min feels fine, on liquid diet, no distention, pain, loose stools MRI shows thickening of distal TI at anastomosis (?active CD) and a "filling defect" more proximal.....?gallstone, stool ball, polyp, mass/tumor VSS nad, alert +bs, soft, NT labs noted a/p i think we need to try another colonoscopy with attempt at TI intubation to eval thickening and filling defect; will plan for Wed, if not successful to get into TI, consider balloon enterooscopy, and if not successful, ?ex lap afib...now in sinus, on lovenox; please hold Tues pm dose for Wed colonoscopy prep Tues for Wed colon d/w Dr Kyara Gallo MD
--- NOTE | 2018-06-09 14:44 | PN ---
Subjective Date of Service: 06/09/18 Interval History: HOSPITALIST PROGRESS NOTE Patient seen and examined at bedside. Care reviewed and d/w Eliezer Cooley RN. He offers no new complaints today. Having BM, passing gas, denies abdominal pain , feels hungry, tolerating liquid diet well. Family History: Unchanged from Admission Social History: Unchanged from Admission Past Medical History: Unchanged from Admission Objective Active Medications: Acetaminophen (Tylenol Supp*) 650 mg [place] Q4H PRN PRN Reason: Pain/fever Aspirin (Aspirin Ec Tab*) 81 mg PO DAILY [facility] Last Admin: 06/08/18 14:08 Dose: 81 mg Enoxaparin Sodium (Lovenox(*)) 80 mg SUBCUT Q12H [facility] Last Admin: 06/09/18 11:29 Dose: 80 mg Fluticasone Propionate (Flonase Nasal [place] 50mcg*) 1 spray INTRANASAL DAILY [facility] Last Admin: 06/09/18 09:23 Dose: 1 spray Piperacillin Sod/Tazobactam (Sod 3.375 gm/ Sodium Chloride) 100 mls @ 25 mls/ hr IVPB Q8H [facility] Last Admin: 06/09/18 09:18 Dose: 25 mls/hr Nft: Azelastine Hcl ([Astelin] 137 Mcg) 137 mcg NASAL BID PRN PRN Reason: CONGESTION Ondansetron HCl (Zofran Inj*) 4 mg IV Q6H PRN PRN Reason: NAUSEA Pantoprazole Sodium (Protonix Iv*) 40 mg IV Q24H [facility] Last Admin: 06/09/18 04:49 Dose: 40 mg Polyethylene Glycol/Electrolytes (Golytely*) 4,000 ml PO ONCE ONE Stop: 06/10/18 17:01 Prochlorperazine Edisylate (Compazine Inj*) 5 mg IV Q6H PRN PRN Reason: NAUSEA/VOMITING Vital Signs - 8 hr 06/09/18 06/09/18 06/09/18 07:32 08:26 11:42 Temperature 98.8 F 99.0 F Pulse Rate 55 55 Respiratory 18 18 18 Rate Blood Pressure 128/54 122/53 (mmHg) O2 Sat by Pulse 93 90 96 Oximetry Oxygen Devices in Use Now: None Appearance: Elderly gentleman sitting up in bed in NAD. Eyes: No Scleral Icterus Ears/Nose/Mouth/Throat: Mucous Membranes Moist Neck: Trachea Midline Respiratory: Symmetrical Chest Expansion and Respiratory Effort, Clear to Auscultation Cardiovascular: RRR - Normal S1 and S2 Abdominal: NL Sounds; No Tenderness; No Distention Neurological: Alert and Oriented x 3, NL Muscle Strength and Tone Result Diagrams: 06/09/18 05:41 06/09/18 05:41 Assess/Plan/Problems-Billing Assessment: Mr Sam is a 83yo M with PMH of Crohn's disease s/p ileal resection age 21 and right colectomy with colostomy and reversal age 63, HTN, AGUSTÍN not o CPAP, BPH , Gout, who presented to ED with c/o nausea vomiting, found to have pSBO. - Patient Problems (1) Severe sepsis Comment: - Patient's presentation compatible with sepsis with fever and tachycardia. - Source is GI (enteritis - infectious vs Crohn's). - Critical care input much appreciated. (2) Atrial fibrillation Comment: - Converted spontaneously and had significant improvement of clinical condition and BP after that. - Echocardiogram with EF 50-55% with no wall motion abnormalities. - D/w Cardiology (Dr Anderson) - as patient is unaware of Afib, there is concern he may have been in and out of it for some time. Plan for now is to continue Lovenox until all procedures/surgeries are concluded and then continue with a NOAC on discharge for 4 weeks. She plans for event monitor as outpatient to then decide about discontinuation of AC. - Keep K>4.0 and Mg>2.0. (3) AGUSTÍN (obstructive sleep apnea) Comment: - As per night RN "Pt noted to have episodes of apnea while sleeping with desaturation in mid to high 80's, 2L of O2 via NC applied with good results , O2 saturations >90%." - Overnight oximetry showed SO2<90% 28% of the night and longest period <88% was 3 minutes. - Will need sleep study as outpatient. (4) SBO (small bowel obstruction) Comment: - CT showed a 1.9 cm calcific density noted in the distal ileum with proximal dilated loops of small bowel concerning for pSBO. - This calcification could be a gallstone vs surgical change vs tumor. - MRI enterography showed enhancement and thickening of distal ileum proximal to anastomosis, filling defect more proximally of uncertain etiology. - Continue Zosyn #3. - Obstruction appears to be resolved at this time, but he has had months of self limited episodes of abdominal pain and distention, N/V, suggesting recurrent pSOB, maybe related to this terminal ileus calcified lesion. (5) Elevated troponin Comment: - Likely secondary to demand ischemia in the setting of severe sepsis and Afib RVR. - Low dose Aspirin. - Echo showed normal EF with no wall motion abnormalities - plan for stress test as outpatient. (6) VANESSA (acute kidney injury) Comment: - Pre renal in the setting of dehydration due to N/V, but also associated with sepsis. - Improving. - Urine output is good. - D/c Rasmussen. (7) Hypomagnesemia Comment: - Replete. (8) DVT prophylaxis Comment: - Lovenox. (9) Full code status Status and Disposition: Inpatient. updated at bedside.
[2018-06-09] MEDS: Aspirin EC TAB* 81 MG TAB.EC PO SCH (17:16)
[2018-06-09] MEDS ORDERED: Cyclobenzaprine TAB* 10 MG PO PRN (17:26)
[2018-06-10] MEDS: Piperacillin/Tazobac ADVAN(*) 3.375 GM in NS 0.9% 100 ML* 100 ML IVPB SCH ×3 (00:43→15:57)
[2018-06-10] MEDS: Pantoprazole IV* 40 MG IV SCH (05:07)
[2018-06-10 06:13] LABS: ABS Basophils 0 10^3/ul (0-0.2); ABS Eosinophils 0.1 10^3/ul (0-0.6); ABS Monocytes 0.4 10^3/ul (0-0.8); ABS Neutrophils 2.3 10^3/ul (1.5-7.7); ABS Nucleated RBC 0 10^3/ul; Hematocrit 38 % (42-52); Hemoglobin 12.7 g/dl (14.0-18.0); Lymphocyte % 25.5 %; Mean Corpuscular HGB Conc 33 g/dl (31-36); Mean Corpuscular Hemoglobin 28 pg (27-31); Mean Corpuscular Volume 84 fL (80-94); Mean Platelet Volume 8.1 fL (7.4-10.4); Nucleated Red Blood Cells % 0; Platelet Count 90 10^3/ul (150-450); Red Blood Count 4.52 10^6/ul (4.00-5.40); Red Cell Distribution Width 14 % (10.5-15); White Blood Count 3.8 10^3/ul (3.5-10.8)
[2018-06-10 06:38] LABS: EGFR Non-African American 45.6 (>60)
[2018-06-10] MEDS ORDERED: Magnesium Sulfate IV* 3 GM in NS 0.9% 100 ML* 100 ML IVPB ONE (07:08)
[2018-06-10] MEDS: Aspirin EC TAB* 81 MG TAB.EC PO SCH (08:30)
[2018-06-10] MEDS: Allopurinol TAB* 100 MG PO SCH (08:30)
[2018-06-10] MEDS: Fluticasone NASAL SPRAY 50MCG* 16 gm SPRAY BTL INTRANASAL SCH (08:42)
[2018-06-10] MEDS: Enoxaparin(*) 80 MG/0.8 ML SYR SUBCUT SCH (10:17)
[2018-06-10] MEDS ORDERED: Cyanocobalamin INJ * 1,000 MCG/ML VIAL 1 ML VIAL IM ONE (14:16)
[2018-06-10] MEDS ORDERED: PEG 3000 GI LAVAGE* 1 GALLON PO ONE (15:00)
--- NOTE | 2018-06-10 15:48 | PN ---
Subjective Date of Service: 06/10/18 Interval History: HOSPITALIST PROGRESS NOTE Patient seen and examined at bedside. Care reviewed and d/w Gagan Palomares RN. He feels well, offers no complaints today. Abdominal pain is resolved, passing flatus and BM. No further episodes of N/V. Family History: Unchanged from Admission Social History: Unchanged from Admission Past Medical History: Unchanged from Admission Objective Active Medications: Acetaminophen (Tylenol Supp*) 650 mg [place] Q4H PRN PRN Reason: Pain/fever Allopurinol (Zyloprim Tab*) 200 mg PO DAILY [facility] Last Admin: 06/10/18 08:30 Dose: 200 mg Aspirin (Aspirin Ec Tab*) 81 mg PO DAILY [facility] Last Admin: 06/10/18 08:30 Dose: 81 mg Cyclobenzaprine HCl (Flexeril Tab*) 10 mg PO BEDTIME PRN PRN Reason: PAIN Fluticasone Propionate (Flonase Nasal [place] 50mcg*) 1 spray INTRANASAL DAILY [facility] Last Admin: 06/10/18 08:42 Dose: 1 spray Piperacillin Sod/Tazobactam (Sod 3.375 gm/ Sodium Chloride) 100 mls @ 25 mls/ hr IVPB Q8H [facility] Last Admin: 06/10/18 08:36 Dose: 25 mls/hr Mesalamine (Mesalamine Dr Cap*) 800 mg PO BID [facility] Last Admin: 06/10/18 08:31 Dose: 800 mg Nft: Azelastine Hcl ([Astelin] 137 Mcg) 137 mcg NASAL BID PRN PRN Reason: CONGESTION Ondansetron HCl (Zofran Inj*) 4 mg IV Q6H PRN PRN Reason: NAUSEA Pantoprazole Sodium (Protonix Iv*) 40 mg IV Q24H [facility] Last Admin: 06/10/18 05:07 Dose: 40 mg Polyethylene Glycol/Electrolytes (Golytely*) 1,000 ml PO ONCE ONE Stop: 06/11/18 06:01 Prochlorperazine Edisylate (Compazine Inj*) 5 mg IV Q6H PRN PRN Reason: NAUSEA/VOMITING Vital Signs - 8 hr 06/10/18 06/10/18 07:51 10:56 Temperature 100.3 F 98.9 F Pulse Rate 51 50 Respiratory 16 16 Rate Blood Pressure 142/65 131/59 (mmHg) O2 Sat by Pulse 96 95 Oximetry Oxygen Devices in Use Now: None Appearance: Pleasant elderly gentleman sitting up in bed in NAD. Eyes: No Scleral Icterus Ears/Nose/Mouth/Throat: Mucous Membranes Moist Neck: Trachea Midline Respiratory: Symmetrical Chest Expansion and Respiratory Effort, Clear to Auscultation Cardiovascular: RRR - Normal S1 and S2 Abdominal: - - Soft, ND, BS+ Neurological: Alert and Oriented x 3, NL Muscle Strength and Tone Result Diagrams: 06/10/18 05:40 06/10/18 05:40 Assess/Plan/Problems-Billing Assessment: Mr Sam is a 83yo M with PMH of Crohn's disease s/p ileal resection age 21 and right colectomy with colostomy and reversal age 63, HTN, AGUSTNÍ not o CPAP, BPH , Gout, who presented to ED with c/o nausea vomiting, found to have pSBO. - Patient Problems (1) Severe sepsis Comment: - Presentation compatible with sepsis with fever and tachycardia, complicated by encephalopathy, VANESSA and elevated troponin. - qSOFA 3 on admission with RR>22, encephalopathy, and SBP<100. - Source is GI - infectious enteritis. - Critical care input much appreciated. (2) Atrial fibrillation Comment: - Converted spontaneously and had significant improvement of clinical condition and BP after that. - Echocardiogram with EF 50-55% with no wall motion abnormalities. - D/w Cardiology (Dr Anedrson) - as patient is unaware of Afib, there is concern he may have been in and out of it for some time. Plan for now is to continue Lovenox until all procedures/surgeries are concluded and then continue with a NOAC on discharge for 4 weeks. She plans for event monitor as outpatient to then decide about discontinuation of AC. - Keep K>4.0 and Mg>2.0. (3) AGUSTÍN (obstructive sleep apnea) Comment: - As per night RN "Pt noted to have episodes of apnea while sleeping with desaturation in mid to high 80's, 2L of O2 via NC applied with good results , O2 saturations >90%." - Overnight oximetry showed SO2<90% 28% of the night and longest period <88% was 3 minutes. - Will need sleep study as outpatient. (4) SBO (small bowel obstruction) Comment: - CT showed a 1.9 cm calcific density noted in the distal ileum with proximal dilated loops of small bowel concerning for pSBO. - This calcification could be a gallstone vs surgical change vs tumor. - MRI enterography showed enhancement and thickening of distal ileum proximal to anastomosis, filling defect more proximally of uncertain etiology. - Continue Zosyn #4. - Obstruction appears to be resolved at this time, but he has had months of self limited episodes of abdominal pain and distention, N/V, suggesting recurrent pSOB, maybe related to this terminal ileus calcified lesion. - Being prepped today for colonoscopy in AM. Not willing to got to [facility] for double balloon enteroscopy, so if colonosocpy unreavealing, will need to discuss with GI and Surgery if exploratory laparotomy indicated. (5) Elevated troponin Comment: - Likely secondary to demand ischemia in the setting of severe sepsis and Afib RVR. - Low dose Aspirin. - Echo showed normal EF with no wall motion abnormalities - plan for stress test as outpatient. (6) VANESSA (acute kidney injury) Comment: - Pre renal in the setting of dehydration due to N/V, but also associated with sepsis. - Improving. - Urine output is good. - Rasmussen removed. (7) Hypomagnesemia Comment: - Replete. (8) DVT prophylaxis Comment: - Lovenox on hold for colonoscopy tomorrow - will resume after procedure. (9) Full code status Status and Disposition: Inpatient.
[2018-06-11] MEDS: Piperacillin/Tazobac ADVAN(*) 3.375 GM in NS 0.9% 100 ML* 100 ML IVPB SCH ×3 (01:01→17:17)
[2018-06-11] MEDS: Pantoprazole IV* 40 MG IV SCH (05:14)
[2018-06-11] MEDS ORDERED: PEG 3000 GI LAVAGE* 1 GALLON PO ONE (06:00)
[2018-06-11] MEDS: Aspirin EC TAB* 81 MG TAB.EC PO SCH (08:25)
[2018-06-11] MEDS: Allopurinol TAB* 100 MG PO SCH (08:25)
[2018-06-11] MEDS: Fluticasone NASAL SPRAY 50MCG* 16 gm SPRAY BTL INTRANASAL SCH (08:25)
[2018-06-11] MEDS ORDERED: fentaNYL* 50 MCG/ML 2 ML VIAL (100 MCG VIAL) ONE (14:21)
[2018-06-11] MEDS ORDERED: Midazolam* 1 MG/ML 10 ML VIAL (10 MG) ONE (14:21)
[2018-06-11] MEDS ORDERED: Haloperidol INJ IV/IM* 5 MG/ML AMP IV SLOW PU PRN (17:35)
--- NOTE | 2018-06-11 17:57 | PN ---
Subjective Date of Service: 06/11/18 Interval History: Patient seen and examined, returned from scope. Discussed findings with GI and with patient and family. Patient states no pain at this time, no vomiting, has some intermittent nausea. Denies chest pain, no palpitations, no SOB. Family History: Unchanged from Admission Social History: Unchanged from Admission Past Medical History: Unchanged from Admission Objective Active Medications: Acetaminophen (Tylenol Supp*) 650 mg [place] Q4H PRN PRN Reason: Pain/fever Allopurinol (Zyloprim Tab*) [address] [facility] Last Admin: 06/11/18 08:25 Dose: 200 mg Aspirin (Aspirin Ec Tab*) [address] [facility] Last Admin: 06/11/18 08:25 Dose: 81 mg Cyclobenzaprine HCl (Flexeril Tab*) 10 mg PO BEDTIME PRN PRN Reason: PAIN Fluticasone Propionate (Flonase Nasal [place] 50mcg*) [address] [facility] Last Admin: 06/11/18 08:25 Dose: 1 spray Piperacillin Sod/Tazobactam (Sod 3.375 gm/ Sodium Chloride) 100 mls @ 25 mls/ hr IVPB Q8H [facility] Last Admin: 06/11/18 17:17 Dose: 25 mls/hr Mesalamine (Mesalamine Dr Cap*) [address] [facility] Last Admin: 06/11/18 08:25 Dose: 800 mg Nft: Azelastine Hcl ([Astelin] 137 Mcg) 137 mcg NASAL BID PRN PRN Reason: CONGESTION Ondansetron HCl (Zofran Inj*) 4 mg IV Q6H PRN PRN Reason: NAUSEA Pantoprazole Sodium (Protonix Iv*) [address] [facility] Last Admin: 06/11/18 05:14 Dose: 40 mg Vital Signs - 8 hr 06/11/18 06/11/18 11:16 14:25 Temperature 98.1 F 98.4 F Pulse Rate 53 48 Respiratory 20 20 Rate Blood Pressure 158/67 150/62 (mmHg) O2 Sat by Pulse 97 96 Oximetry Oxygen Devices in Use Now: None Appearance: alert, NAD Eyes: PERRLA Ears/Nose/Mouth/Throat: Clear Oropharnyx, Mucous Membranes Moist Neck: NL Appearance and Movements; NL JVP, Trachea Midline Respiratory: Symmetrical Chest Expansion and Respiratory Effort, Clear to Auscultation Cardiovascular: NL Sounds; No Murmurs; No JVD, - - irregular Abdominal: - - non-tender, hypoactive BS noted Extremities: No Edema Skin: No Rash or Ulcers Neurological: Alert and Oriented x 3, NL Sensation, NL Gait Nutrition: - - NPO for procedure Result Diagrams: 06/10/18 05:40 06/10/18 05:40 Microbiology and Other Data: Microbiology 06/07/18 11:50 Urine Culture - Final Urine No Growth (<1,000 CFU/mL) 06/07/18 03:09 Aerobic Blood Culture - Preliminary Blood Venous No Growth Day 1 Anaerobic Blood Culture - Preliminary No Growth Day 1 06/07/18 03:09 Aerobic Blood Culture - Preliminary Blood Venous No Growth Day 1 Anaerobic Blood Culture - Preliminary No Growth Day 1 06/07/18 11:50 Nasal Screen MRSA (PCR) - Final Nasal Mrsa Not Detected Assess/Plan/Problems-Billing Assessment: This is an 83yo M with PMH of Crohn's disease s/p ileal resection age 21 and right colectomy with colostomy and reversal age 63, HTN, AGUSTÍN not on CPAP, BPH, Gout, who presented to ED with c/o nausea vomiting, found to have pSBO. - Patient Problems (1) SBO (small bowel obstruction) Code(s): K56.609 - UNSP INTESTNL OBST, UNSP TO PARTIAL VERSUS COMPLETE OBST SNOMED Code(s): 354361706 Comment: - s/p colonoscopy today with Dr. Guzman, biopsies obtained, there is significant narrowing, fibrotic changes vs. inflammation? - Per GI, case witll be discussed with Dr. Allen tomorrow to determine if ex lap is appropriate - CT showed a 1.9 cm calcific density noted in the distal ileum with proximal dilated loops of small bowel concerning for pSBO. - MRI enterography showed enhancement and thickening of distal ileum proximal to anastomosis, filling defect more proximally of uncertain etiology. - Continue Zosyn empirically - CLD tonight, advance to [facility] tomorrow if tolerated (2) Atrial fibrillation Code(s): I48.91 - UNSPECIFIED ATRIAL FIBRILLATION SNOMED Code(s): 07500697 Comment: - Converted spontaneously and had significant improvement of clinical condition and BP after that, remains irregular on telemetry - Patient states he has asymptomatic when in afib, will need AC - Echocardiogram with EF 50-55% with no wall motion abnormalities. - Continue lovenox while possibility of surgical intervention, can switch to NOAC on discharge for 4 weeks - Plans for event monitor as outpatient to then decide about discontinuation of AC - Keep K>4.0 and Mg>2.0 (3) HTN (hypertension) Code(s): I10 - ESSENTIAL (PRIMARY) HYPERTENSION SNOMED Code(s): 00368704 Comment: - stable continue outpt meds (4) AGUSTÍN (obstructive sleep apnea) Code(s): G47.33 - OBSTRUCTIVE SLEEP APNEA (ADULT) (PEDIATRIC) SNOMED Code(s): 38468413 Comment: - Overnight oximetry showed SO2<90% 28% of the night and longest period <88% was 3 minutes. - Will need sleep study as outpatient. (5) Severe sepsis Code(s): A41.9 - SEPSIS, UNSPECIFIED ORGANISM; R65.20 - SEVERE SEPSIS WITHOUT SEPTIC SHOCK SNOMED Code(s): 67386093 Comment: - Presentation compatible with sepsis with fever and tachycardia, complicated by encephalopathy, VANESSA and elevated troponin, symptoms now resolved - Source is GI, infectious enteritis - Continue zosyn (6) Hypomagnesemia Code(s): E83.42 - HYPOMAGNESEMIA SNOMED Code(s): 962248574 Comment: - Continue repletion (7) Full code status Code(s): Z78.9 - OTHER SPECIFIED HEALTH STATUS SNOMED Code(s): 707796657 Status and Disposition: Inpatient. Dispo TBD.
[2018-06-11] MEDS: Enoxaparin(*) 80 MG/0.8 ML SYR SUBCUT SCH (20:34)
--- NOTE | 2018-06-11 20:56 | PRO ---
DATE OF PROCEDURE: 06/11/18 - ROOM #431 PROCEDURE: Colonoscopy with biopsy. INDICATIONS: History of Crohn's disease with a prior ileocecectomy a number of years ago, who is admitted with acute-onset abdominal pain. Imaging shows possible calcified density at the ileocolonic anastomosis raising concern for a gallstone or other filling defect. MR enterography notes enhancement indicating a distal ileum just proximal to the anastomosis with filling defect, more proximal in the small bowel of uncertain etiology. Plan for colonoscopy with attempted intubation of the ileum. MEDICATIONS GIVEN: Midazolam 5 mg IV, Fentanyl 50 mcg IV. DESCRIPTION OF PROCEDURE: Full disclosure of risks was reviewed with the patient as detailed on the consent form. The patient was placed in the left lateral decubitus position and monitored with continuous pulse oximetry, capnography, interval blood pressure monitoring, and direct observation. After anorectal exam was performed, the adult colonoscope was inserted into the rectum and advanced under direct vision to the level of the ileocolonic anastomosis. Quality of the prep was poor with significant amounts of retained fluid and bubbles. Procedure was modestly difficult and abdominal pressure was required. Findings and interventions are described below. FINDINGS: Anorectal exam was unremarkable. Scope was slowly advanced to the level of the ileocolonic anastomosis. The blind limb of colon was examined and noted to contain some residual solid material, likely prior pills. No inflammation in this area was noted. Scope was then withdrawn slightly to the area of the ileocolonic anastomosis. This area was noted to have some spontaneous friability and bleeding. The anastomosis was very narrowed. The scope was not able to intubate the ileum due to the quite narrow lumen. Biopsies were obtained. Scope was then withdrawn throughout the remainder of the colon. Prep was poor, although lavage and suctioning was performed. There was no clear inflammation noted throughout the remainder of the colon. In the rectum, there were fairly large rectal veins that were noted. Retroflexion was not performed. Scope was then withdrawn from the patient. The patient tolerated the procedure well and was recovered in the GI recovery area. IMPRESSION: 1. Very narrowed ileocolonic anastomosis with some spontaneous oozing and friability suggestive of possible acute on chronic inflammation. Unable to intubate the ileum. 2. No overt inflammation noted in the remainder of the colon. RECOMMENDATIONS: 1. Await pathology. 2. I discussed the case with the patient's primary brake shoe rebuilder, Dr. Chava Gallo. I also discussed the case with the patient and the patient's and daughter. The appearance of the anastomosis was impressive in how small the lumen appeared to be. I would suspect that there is quite a bit of chronicity to the stricturing, especially as the patient has had increasing symptoms over the past year. There was some friability and spontaneous oozing, which makes it possible that there is some concurrent acute inflammation. Could consider steroids to see if this allows for any improvement in the stricture, although again I suspect there is quite a bit of chronic fibrostenotic changes that are likely occurring at the anastomosis. Given the patient's intermittent chronic symptoms suggestive of partial bowel obstruction and current admission, I think it is reasonable to explore surgical options at this point. The patient's indicates that she very much would like to speak with Dr. Allen in particular. Dr. Gallo will discuss the case with him tomorrow. Recommend clear full liquid diet for now as the patient does not appear to be acutely obstructed and was able to tolerate the colonoscopy prep without any significant issues. We will await the pathology report of the biopsies and as mentioned previously could consider a trial of steroids depending on results. [id number]/[facility] #: [id number] MTDD
[2018-06-12] MEDS: Piperacillin/Tazobac ADVAN(*) 3.375 GM in NS 0.9% 100 ML* 100 ML IVPB SCH ×3 (00:01→16:51)
[2018-06-12] MEDS: Enoxaparin(*) 80 MG/0.8 ML SYR SUBCUT SCH ×2 (05:37→17:49)
[2018-06-12] MEDS: Pantoprazole IV* 40 MG IV SCH (05:37)
[2018-06-12 05:45] LABS: ABS Basophils 0.1 10^3/ul (0-0.2); ABS Eosinophils 0.1 10^3/ul (0-0.6); ABS Lymphocytes 0.9 10^3/ul (1.0-4.8); ABS Monocytes 0.3 10^3/ul (0-0.8); ABS Neutrophils 2.7 10^3/ul (1.5-7.7); ABS Nucleated RBC 0 10^3/ul; Eosinophil % 3.4 %; Hematocrit 39 % (42-52); Hemoglobin 13.1 g/dl (14.0-18.0); Lymphocyte % 21.9 %; Mean Corpuscular HGB Conc 34 g/dl (31-36); Mean Corpuscular Hemoglobin 28 pg (27-31); Mean Corpuscular Volume 83 fL (80-94); Mean Platelet Volume 8.2 fL (7.4-10.4); Nucleated Red Blood Cells % 0; Platelet Count 114 10^3/ul (150-450); Red Blood Count 4.64 10^6/ul (4.00-5.40); Red Cell Distribution Width 14 % (10.5-15); White Blood Count 4.1 10^3/ul (3.5-10.8)
[2018-06-12 06:03] LABS: EGFR Non-African American 51.2 (>60)
[2018-06-12] MEDS: Fluticasone NASAL SPRAY 50MCG* 16 gm SPRAY BTL INTRANASAL SCH (08:29)
[2018-06-12] MEDS: Aspirin EC TAB* 81 MG TAB.EC PO SCH (08:35)
[2018-06-12] MEDS: Allopurinol TAB* 100 MG PO SCH (08:35)
--- NOTE | 2018-06-12 11:33 | PN ---
Subjective Date of Service: 06/12/18 Interval History: Mr. Sam denies complaint today. He is eager to know the plan to address his recurrent partial SBOs. He specifically denies chest pain, SOB, nausea, or abdominal pain. Family History: Unchanged from Admission Social History: Unchanged from Admission Past Medical History: Unchanged from Admission Objective Active Medications: Acetaminophen (Tylenol Supp*) 650 mg PA Q4H PRN Allopurinol (Zyloprim Tab*) 200 mg PO DAILY MATT Aspirin (Aspirin Ec Tab*) 81 mg PO DAILY MATT Cyclobenzaprine HCl (Flexeril Tab*) 10 mg PO BEDTIME PRN Enoxaparin Sodium (Lovenox(*)) 80 mg SUBCUT Q12H MATT Fluticasone Propionate (Flonase Nasal [place] 50mcg*) 1 spray INTRANASAL DAILY MATT Piperacillin Sod/Tazobactam (Sod 3.375 gm/ Sodium Chloride) 100 mls @ 25 mls/ hr IVPB Q8H MATT Mesalamine (Mesalamine Dr Cap*) 800 mg PO BID [facility] Nft: Azelastine Hcl ([Astelin] 137 Mcg) 137 mcg NASAL BID PRN Ondansetron HCl (Zofran Inj*) 4 mg IV Q6H PRN Pantoprazole Sodium (Protonix Iv*) 40 mg IV Q24H [facility] Oxygen Devices in Use Now: None Appearance: Male sitting up in chair in NAD Eyes: No Scleral Icterus Ears/Nose/Mouth/Throat: Mucous Membranes Moist Neck: Trachea Midline Respiratory: Symmetrical Chest Expansion and Respiratory Effort, Clear to Auscultation Cardiovascular: NL Sounds; No Murmurs; No JVD, No Edema Abdominal: NL Sounds; No Tenderness; No Distention Extremities: No Edema Skin: No Rash or Ulcers Neurological: Alert and Oriented x 3, NL Muscle Strength and Tone Nutrition: Taking PO's Result Diagrams: 06/12/18 05:26 06/12/18 05:26 Microbiology and Other Data: . Assess/Plan/Problems-Billing Assessment: Mr. Sam is an 83yo M with PMH of Crohn's disease s/p ileal resection age 21 and right colectomy with colostomy and reversal age 63, HTN, AGUSTÍN not on CPAP, BPH, Gout, who presented to ED with c/o nausea vomiting, found to have pSBO. - Patient Problems (1) SBO (small bowel obstruction) Comment: - Resolving - CT showed a 1.9 cm calcific density noted in the distal ileum with proximal dilated loops of small bowel concerning for pSBO. Unclear what this density may be, ? gallstone but no evidence of pneumobilia - s/p colonoscopy with Dr. Guzman, biopsies obtained, there is significant narrowing, fibrotic changes vs. inflammation? MRI enterography showed enhancement and thickening of distal ileum proximal to anastomosis, filling defect more proximally of uncertain etiology. - Appreciate review of case by Dr. Allen, does not think ex lap is appropriate , refers to Dr. Gallo's note who suggests that balloon dilatation may be a best first step. GI will follow up with GI team in [place] regarding a balloon procedure vs colorectal surgery. - Continue Zosyn empirically - Advance to full liquid diet (2) Severe sepsis Comment: - Presentation compatible with sepsis with fever and tachycardia, complicated by encephalopathy, VANESSA and elevated troponin, symptoms now resolved - Source is GI, infectious enteritis - Continue zosyn (3) Atrial fibrillation Comment: - Converted spontaneously and had significant improvement of clinical condition and BP after that, remains irregular on telemetry - Patient states he has asymptomatic when in afib, will need AC - Echocardiogram with EF 50-55% with no wall motion abnormalities. - Continue lovenox while possibility of surgical intervention, can switch to NOAC on discharge for 4 weeks - Plans for event monitor as outpatient to then decide about discontinuation of AC - Keep K>4.0 and Mg>2.0 (4) Elevated troponin Comment: - Likely secondary to demand ischemia in the setting of severe sepsis and Afib RVR. - Low dose Aspirin. - Echo showed normal EF with no wall motion abnormalities - plan for stress test as outpatient. (5) HTN (hypertension) Comment: - stable continue outpt meds (6) VANESSA (acute kidney injury) Comment: - Improving - Pre renal in the setting of dehydration due to N/V, but also associated with sepsis. (7) Hypomagnesemia Comment: - Continue repletion (8) AGUSTÍN (obstructive sleep apnea) Comment: - Overnight oximetry showed SO2<90% 28% of the night and longest period <88% was 3 minutes. - Will need sleep study as outpatient. (9) DVT prophylaxis Comment: - Lovenox (10) Full code status Comment: Status and Disposition: Inpatient. Dispo TBD.
[2018-06-12] MEDS ORDERED: Magnesium Sulfate IV* 3 GM in NS 0.9% 100 ML* 100 ML IVPB ONE (12:30)
[2018-06-13] MEDS: Piperacillin/Tazobac ADVAN(*) 3.375 GM in NS 0.9% 100 ML* 100 ML IVPB SCH ×2 (00:13→07:28)
[2018-06-13] MEDS: Enoxaparin(*) 80 MG/0.8 ML SYR SUBCUT SCH (05:05)
[2018-06-13] MEDS: Pantoprazole IV* 40 MG IV SCH (05:05)
[2018-06-13 05:47] LABS: ABS Basophils 0.1 10^3/ul (0-0.2); ABS Eosinophils 0.1 10^3/ul (0-0.6); ABS Monocytes 0.3 10^3/ul (0-0.8); ABS Neutrophils 2.9 10^3/ul (1.5-7.7); ABS Nucleated RBC 0 10^3/ul; Eosinophil % 2.7 %; Hematocrit 38 % (42-52); Hemoglobin 12.8 g/dl (14.0-18.0); Lymphocyte % 22.5 %; Mean Corpuscular HGB Conc 34 g/dl (31-36); Mean Corpuscular Hemoglobin 28 pg (27-31); Mean Corpuscular Volume 84 fL (80-94); Mean Platelet Volume 8.5 fL (7.4-10.4); Nucleated Red Blood Cells % 0; Platelet Count 114 10^3/ul (150-450); Red Blood Count 4.53 10^6/ul (4.00-5.40); Red Cell Distribution Width 14 % (10.5-15); White Blood Count 4.5 10^3/ul (3.5-10.8)
[2018-06-13] MEDS: Fluticasone NASAL SPRAY 50MCG* 16 gm SPRAY BTL INTRANASAL SCH (07:27)
[2018-06-13] MEDS: Allopurinol TAB* 100 MG PO SCH (07:28)
[2018-06-13] MEDS: Aspirin EC TAB* 81 MG TAB.EC PO SCH (07:28)
--- NOTE | 2018-06-13 12:46 | PN ---
Subjective Date of Service: 06/13/18 Interval History: Mr. Sam reports feeling well today. He has tolerated his breakfast and has no nausea or abdominal pain. He denies chest pain or SOB. Family History: Unchanged from Admission Social History: Unchanged from Admission Past Medical History: Unchanged from Admission Objective Active Medications: Acetaminophen (Tylenol Supp*) 650 mg MD Q4H PRN Allopurinol (Zyloprim Tab*) 200 mg PO DAILY MATT Aspirin (Aspirin Ec Tab*) 81 mg PO DAILY MATT Cyclobenzaprine HCl (Flexeril Tab*) 10 mg PO BEDTIME PRN Enoxaparin Sodium (Lovenox(*)) 80 mg SUBCUT Q12H MATT Fluticasone Propionate (Flonase Nasal [place] 50mcg*) 1 spray INTRANASAL DAILY MATT Piperacillin Sod/Tazobactam (Sod 3.375 gm/ Sodium Chloride) 100 mls @ 25 mls/ hr IVPB Q8H MATT Mesalamine (Mesalamine Dr Cap*) 800 mg PO BID MATT Nft: Azelastine Hcl ([Astelin] 137 Mcg) 137 mcg NASAL BID PRN Ondansetron HCl (Zofran Inj*) 4 mg IV Q6H PRN Pantoprazole Sodium (Protonix Iv*) 40 mg IV Q24H MATT Vital Signs: Temp Pulse Resp BP Pulse Ox 98.2 F 47 16 136/60 100 06/13/18 11:08 06/13/18 11:08 06/13/18 11:08 06/13/18 11:08 06/13/18 11:08 Oxygen Devices in Use Now: None Appearance: Male sitting up in chair in NAD Eyes: No Scleral Icterus Ears/Nose/Mouth/Throat: Mucous Membranes Moist Neck: Trachea Midline Respiratory: Symmetrical Chest Expansion and Respiratory Effort, Clear to Auscultation Cardiovascular: NL Sounds; No Murmurs; No JVD, No Edema Abdominal: NL Sounds; No Tenderness; No Distention Extremities: No Edema Skin: No Rash or Ulcers Neurological: Alert and Oriented x 3, NL Muscle Strength and Tone Nutrition: Taking PO's Result Diagrams: 06/13/18 05:23 06/13/18 05:23 Microbiology and Other Data: . Assess/Plan/Problems-Billing Assessment: Mr. Sam is an 83yo M with PMH of Crohn's disease s/p ileal resection age 21 and right colectomy with colostomy and reversal age 63, HTN, AGUSTÍN not on CPAP, BPH, Gout, who presented to ED with c/o nausea vomiting, found to have pSBO. - Patient Problems (1) SBO (small bowel obstruction) Comment: - Tolerating a regular diet, low residue. - CT showed a 1.9 cm calcific density noted in the distal ileum with proximal dilated loops of small bowel concerning for pSBO. Unclear what this density may be, ? gallstone but no evidence of pneumobilia - s/p colonoscopy with Dr. Guzman, biopsies obtained, there is significant narrowing, fibrotic changes vs. inflammation? MRI enterography showed enhancement and thickening of distal ileum proximal to anastomosis, filling defect more proximally of uncertain etiology. - GI recommending follow up with colorectal surgeon in [place] for evaluation. Given associated inflammation and concern for crohn's flair at anastamosis, will start prednisone 40mg daily per Thomas. Check CRP now as objective marker to follow for inflammation (2) Severe sepsis Comment: - Resolved - Presentation compatible with sepsis with fever and tachycardia, complicated by encephalopathy, VANESSA and elevated troponin, symptoms now resolved - Source is GI, infectious enteritis (3) Atrial fibrillation Comment: - Converted spontaneously and had significant improvement of clinical condition and BP after that, remains irregular on telemetry - Patient states he has asymptomatic when in afib, will need AC - Echocardiogram with EF 50-55% with no wall motion abnormalities. - Switch to NOAC. Plans for event monitor as outpatient to then decide about discontinuation of AC (4) Elevated troponin Comment: - Likely secondary to demand ischemia in the setting of severe sepsis and Afib RVR. - Low dose Aspirin. - Echo showed normal EF with no wall motion abnormalities - plan for stress test as outpatient. (5) HTN (hypertension) Comment: - stable continue outpt meds (6) VANESSA (acute kidney injury) Comment: - Resolved (7) Hypomagnesemia Comment: - Continue repletion (8) AGUSTÍN (obstructive sleep apnea) Comment: - Overnight oximetry showed SO2<90% 28% of the night and longest period <88% was 3 minutes. - Will need sleep study as outpatient. (9) DVT prophylaxis Comment: - Lovenox (10) Full code status Comment: Status and Disposition: Inpatient. Discharge to home
[2018-06-13 16:37] VITALS: BP 140/68
--- NOTE | 2018-06-13 17:37 | PN ---
Progress Note - Progress Note Date of Service: 06/13/18 Note: BRIEF GASTROENTEROLOGY CONSULT FOLLOW-UP IE: No acute events. S: Tolerating soft diet. + BM. No abdominal pain. O: VS WNL GEN: Pleasant, comfortable appearing. NAD. HEENT: MMM PULM: Breathing comfortably. ABD: Soft, non-distended, non-tender. LABS: WBC 4.5, Hct 38, Plt 114, Cr 1.39, AST 58, ALT 54, bilirubin 0.7. CRP 23.72 (06/07) PATH: Ileocolonic anastomosis: Small bowel mucosa with architectural disorder compatible with repair and ulceration with associated acute and chronically inflamed granulation tissue. IMPRESSION/RECOMMENDATIONS: 83 year-old gentleman with Crohn's disease status-post small and large bowel resections remotely, who was admitted with sepsis and pSBO. Evaluation demonstrated 1.9 cm calcified density in distal ileum with proximal dilation. Unclear if this represents gallstone or other foreign object. MRE demonstrated a few centimeters of terminal ileal inflammation. 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 Unable to intubate ileum. Biopsies demonstrate acute and chronically inflamed granulation tissue. Clinically patient is much improved. Tolerating diet and having bowel movements. Consistent with resolved pSBO. Possible that the object is ball- valving in the distal ileum and recurrent obstruction may occur. Likely that there is some component of acute inflammation at ileocolonic anastomosis, although I suspect there is a significant fibrostenotic aspect to this stricture given the intermittent pSBO symptoms going back a year. - Recommend low residue diet - Start Prednisone 40 mg/day to attempt to relieve acute inflammatory component to ilecolonic anastomotic stricture. Monitor CRP and consider fecal calprotectin as objective measures of inflammation. - Consider repeat x-ray in 1-2 weeks to see if calcified density remains in distal ileum. - Discussed case with Dr Cleveland, who is a colorectal surgeon in [place]. Dr Cleveland agrees with steroid trial. He will see patient in his clinic in 1-2 weeks to discuss case. - Will follow-up in outpatient clinic with Dr Sabino Guzman MD Gastroenterology
--- NOTE | 2018-06-14 09:56 | DS ---
CC: Dr. Bello * [facility] MEDICINE DISCHARGE SUMMARY: DATE OF ADMISSION: 06/07/18 DATE OF DISCHARGE: 06/13/18 ATTENDING PHYSICIAN: Dr. Cande Merino * (dictation provided by Octavio Denise NP ) PRIMARY DIAGNOSES: 1. Severe sepsis now resolved. 2. Partial small-bowel obstruction related to stricture and inflammation at the site of anastomosis, resolved. 3. Atrial fibrillation, new diagnosis. 4. Acute kidney injury, now resolved. 5. Elevated troponin, suspected demand ischemia. 6. Questionable obstructive sleep apnea, recommendations for sleep study as outpatient. SECONDARY DIAGNOSES: 1. History of Crohn disease, status post small-bowel resection with colostomy and reversal 20 years ago. 2. Hypertension. 3. Gout. MEDICATIONS AT THE TIME OF DISCHARGE: 1. Clarinex 5 mg p.o. daily p.r.n. 2. Fluticasone nasal spray 1 spray intranasally daily. 3. Cyanocobalamin 1000 mg IM monthly. 4. Meclizine 25 mg p.o. t.i.d. p.r.n. 5. Cyclobenzaprine 10 mg p.o. at bedtime p.r.n. 6. Vitamin D3 50,000 units p.o. weekly. 7. Folic acid 400 mcg p.o. q.a.m. 8. [place]-3 fatty acid pill 4 g p.o. q.a.m. 9. Allopurinol 200 mg p.o. q.a.m. 10. Azelastine 137 mcg nasally b.i.d. p.r.n. 11. Ascorbic acid 500 mg p.o. q.a.m. 12. Prednisone 40 mg p.o. daily (new medication) 13. Rivaroxaban 20 mg p.o. q.p.m. 14. Mesalamine DR 800 mg p.o. b.i.d. 15. Aspirin 81 mg p.o. daily. HOSPITAL COURSE: Mr. Sam is an 83-year-old male who presented to the emergency room on 06/07/18 with concern for fever of 103, vomiting and diarrhea. Please see dictated H and P from Dr. Pyle for complete details. The patient has had a history at least a year's worth of intermittent abdominal pain with nausea, vomiting and diarrhea, thought to be secondary to partial small-bowel obstruction. In the emergency room, he had an abdomen and pelvis CT , which showed a "1.9 cm calcific density noted in the distal ileum, best seen on axial image 53 and coronal image 42. Findings may represent gallstone or ingested foreign body. There are dilated loops of small bowel noted proximally measuring up to 2.6 cm. Findings are concerning for partial small-bowel obstruction versus ileus. The gallbladder is dilated containing multiple gallstones measuring up to 1.2 cm. Recommend right upper quadrant sonography for further evaluation." Patient's labs were remarkable for no leukocytosis. He had slight acute kidney injury with a creatinine 1.86, BUN of 35, and a elevated troponin of 0.07, and CRP was 23.72. He did meet sepsis criteria due to fever and tachypnea. His repeat troponin was elevated consistent with end organ dysfunction and severe sepsis secondary to possible enteritis. Mr. Sam was admitted to the hospital. He had a transthoracic echocardiogram, which showed the following: "Estimated ejection fraction is 50% to 55%, global left ventricular wall motion and contractility within normal limits. There is evidence of mild pulmonary hypertension. Right ventricle is mildly dilated and RV systolic function is normal." The patient did have repeat troponins, which peaked at 0.34. He was seen in consultation by Dr. Anderson from the cardiology team. She suspected this was demand ischemia based on his severe sepsis. About that time, the patient was noted to have paroxysmal atrial fibrillation which was rate controlled. He never had symptoms of AFib in the past nor could he tell he was in AFib during the hospitalization. Therefore, there was concern that he did have AFib and was unaware as an outpatient. Recommendation was for anticoagulation with lovenox since surgery was a possibility during this hospitalization. The patient was managed on Lovenox during the hospital, but now be transitioned over to Xarelto. For his severe sepsis, he was treated with Zosyn during the hospitalization for possible enteritis. His last fever was on 06/10/18. He has remained afebrile since then. He had a small spike in his white blood cell count of 12.8, but this is resolved. For his partial small-bowel obstruction, the patient has had workup and consultation with surgery and with Gastroenterology including Dr. Ball, Dr. Allen, Dr. Gallo and Dr. Guzman. The patient went on for an abdomen MRI on 06/09/18, which showed the following "there is enhancement and thickening of the distal ileum just proximal to the anastomosis. Inflammatory bowel disease is not totally excluded. This probably involves the most distal 4-cm. No evidence of bowel obstruction is noted. There is a filling defect noted proximally in the small bowel, which is of uncertain etiology." The patient went on to have a colonoscopy on 06/11/18. The patient was found to have "spontaneous friability and bleeding" at the ileocolonic anastomosis. It was also noted that "the anastomosis was very narrow and the scope was not able to intubate the ileum due to the quite narrow lumen." Biopsies were obtained. There was no other inflammation noted in the remainder of the colon. The case has been discussed at length with GI and with Surgery. At this point, the patient has been advanced back to a regular diet and is tolerating that well. It appears that his current proximal small-bowel obstruction has resolved. Because of the inflammation and concern for Crohn's, the recommendation from Dr. Guzman is that we start prednisone 40 mg p.o. daily. The [facility] and the family will be calling Dr. Cleveland in [place] for follow up. If the patient were to develop signs of a bowel obstruction with nausea, vomiting, abdominal pain, he is instructed that he certainly could return to our hospital but he may consider going to [place] for admission for more urgent evaluation by the colorectal team there as they would be able to perform the needed surgical intervention. Mr. Sam is medically stable for discharge to home. He is going to be discharged to home on prednisone for concern of inflammation around the anastomosis. The hope is that perhaps this will decrease any edema there that may allow for decreased risk of future partial small-bowel obstructions. Regardless, because of the severity of the stricture there, he will need followup and evaluation by Dr. Cleveland in [place]. For his new onset atrial fibrillation, he is rate controlled and will be starting on Xarelto tonight. DISPOSITION: To home. DIET: Low residue, regular. ACTIVITY: As tolerated. FOLLOWUP PLANS: 1. Please follow up with Dr. Cleveland for consideration of colorectal surgery. 2. Please follow up with Dr. Gallo next week. 3. Please consider following with Dr. Gallo's office for a calprotectin stool test. 4. Please consider follow up with Cardiology regarding atrial fibrillation and consideration of long-term outpatient monitoring to determine if patient is in fact in AFib with any regularity and whether or not NOAC should be continued indefinitely. 5. Please consider followup for sleep study as there was evidence of possible obstructive sleep apnea in the hospital. TIME SPENT: Approximately 75 minutes was spent on the discharge of this patient , more than half the time was spent with the patient at bedside reviewing the events leading up to this hospitalization, during this hospitalization, performing the physical examination, and reviewing my plan of care. OCTAVIO DENISE NP [id number]/[facility] #: [id number] GLENNY
== END 2018-06-13 18:11 | disposition home or self-care (01) | DRG 872 ==
LOC: ED 02:28 → MED 04:43 → MEDTELE 09:25 → ICU 10:38 → MEDTELE 06-08 11:29
PROVIDERS: ADMIT Internal Medicine; ATTEND Internal Medicine
PROC: 0TPBX0Z Removal of Drainage Device from Bladder, External Approach (ICD-10-PCS; 2018-06-09)
PROC: 0DBH8ZX Excision of Cecum, Via Natural or Artificial Opening Endoscopic, Diagnostic (ICD-10-PCS; principal; 2018-06-11)
PROC: 0DBC8ZX Excision of Ileocecal Valve, Via Natural or Artificial Opening Endoscopic, Diagnostic (ICD-10-PCS; 2018-06-11)
DX: A41.9 Sepsis, unspecified organism (principal); K91.89 Other postprocedural complications and disorders of digestive system; N17.9 Acute kidney failure, unspecified; I24.8 Other forms of acute ischemic heart disease; K56.7 Ileus, unspecified; G93.40 Encephalopathy, unspecified; K50.912 Crohn's disease, unspecified, with intestinal obstruction; R65.20 Severe sepsis without septic shock; N40.0 Benign prostatic hyperplasia without lower urinary tract symptoms; M10.9 Gout, unspecified; K80.20 Calculus of gallbladder without cholecystitis without obstruction; I48.91 Unspecified atrial fibrillation; I48.0 Paroxysmal atrial fibrillation; N18.9 Chronic kidney disease, unspecified; I12.9 Hypertensive chronic kidney disease with stage 1 through stage 4 chronic kidney disease, or unspecified chronic kidney disease; K63.89 Other specified diseases of intestine; G47.33 Obstructive sleep apnea (adult) (pediatric); I10 Essential (primary) hypertension; I27.20 Pulmonary hypertension, unspecified; D69.6 Thrombocytopenia, unspecified; E83.42 Hypomagnesemia; E86.0 Dehydration; Z90.49 Acquired absence of other specified parts of digestive tract; Z82.49 Family history of ischemic heart disease and other diseases of the circulatory system; Z82.0 Family history of epilepsy and other diseases of the nervous system; Z87.891 Personal history of nicotine dependence; Z93.2 Ileostomy status; Z79.82 Long term (current) use of aspirin; Z79.52 Long term (current) use of systemic steroids
CPT/HCPCS: 36415; 70450; 71045; 74176; 74183; 80048; 80053; 81003; 81015; 83605; 83690; 83735; 83880; 84443; 84484; 85025; 85060; 85610; 85730; 86022; 86140; 87040; 87086; 87641; 88305; 93005; 93306; 94762; 99156; 99157; 99285; A9270-GY; A9579; J1160; J1610; J1644; J1650; J2250; J2543; J3010; J3420; J3475; J3480

== ENCOUNTER 2019-04-29 09:01 | Inpatient (IN) | payer MEDICARE, OTHER ==
[2019-04-29 10:43] LABS: Albumin 4.3 g/dL (3.2-5.2); Albumin/Globulin Ratio 1.6 (1-3); BUN/Creatinine Ratio 14.1 (8-20); Calcium 9.8 mg/dL (8.6-10.3); EGFR African American 49.4 (>60); EGFR Non-African American 40.8 (>60); Globulin 2.7 g/dL (2-4); Potassium 4.4 mmol/L (3.5-5.0); Total Bilirubin 0.8 mg/dL (0.2-1.0)
[2019-04-29] MEDS: Sotalol TAB* 80 MG PO SCH ×2 (12:05→20:12)
[2019-04-29 14:34] LABS: Magnesium 1.7 mg/dL (1.9-2.7)
[2019-04-29] MEDS: Saline FLUSH-PERIPHERAL* 10 ML SYRINGE PERIPH SCH ×2 (15:57→20:16)
[2019-04-29] MEDS ORDERED: Rivaroxaban TAB(*) 20 MG TAB PO SCH (17:00)
[2019-04-29] MEDS ORDERED: Magnesium Sulfate 1 GM IV* 1 GM/100 ML BAG IV ONE (20:25)
[2019-04-30] MEDS: Saline FLUSH-PERIPHERAL* 10 ML SYRINGE PERIPH SCH ×3 (01:30→17:19)
--- NOTE | 2019-04-30 08:23 | HP ---
CC: Dr. Sheikh * ADMISSION HISTORY AND PHYSICAL: DATE OF ADMISSION: 04/29/19 HISTORY OF PRESENT ILLNESS: Mr. Sam is an 83-year-old gentleman with a history of paroxysmal AFib and longstanding Crohn's disease. He had been placed on Multaq, but this increased his AFib burden and his PVCs to over 25% of his total beats. The Multaq was discontinued. A followup Holter monitor in late March confirmed marked improvement in ventricular and supraventricular ectopy and the decision was made to try sotalol at low doses taking into account his longstanding renal insufficiency. The patient was amenable. Currently the patient is feeling well. He denies awareness of significant palpitations. He continues to ambulate and exercise regularly. PAST MEDICAL HISTORY: The patient has a past medical history of: 1. Paroxysmal atrial fibrillation, asymptomatic. 2. Crohn's disease. 3. Renal insufficiency. 4. Hypertension. 5. Vertigo. 6. History of epistaxis, on Eliquis. PAST SURGICAL HISTORY: Includes: 1. Ileal resection at age 21, age 62, and age 83. 2. Ileocolic resection, adhesions, omentectomy. 3. Cataract removal. MEDICATIONS: Current outpatient medications include: 1. Xarelto 20 mg a day. 2. Vitamin D 5000 units every 2 weeks. 3. B12 injections. 4. Amlodipine/benazepril/hydrochlorothiazide 10/20 mg a day. 5. Delzicol 400 mg 2 tabs b.i.d. 6. Folic acid 400 mcg a day. 7. Allopurinol 200 mg a day. 8. Vitamin C 500 mg a day. 9. Clarinex 5 mg p.r.n. 10. Multi-Krista daily. 11. Saw-[place] 450 mg b.i.d. ALLERGIES: ELIQUIS intolerance because of epistaxis. FAMILY HISTORY: Significant in that father of pancreatic cancer, mother had a history of heart disease and Alzheimer's. SOCIAL HISTORY: The patient was recently . 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 He has 2 children, supportive. History of distant smoking, stopped in 1995. Rare alcohol use. No history of recreational drug use. Walks regularly. REVIEW OF SYSTEMS: Negative for chest pain, exercise intolerance, palpitations , racing of the heart, orthopnea or PND. No recent infections. All other review of systems was negative. PHYSICAL EXAMINATION GENERAL APPEARANCE: Elderly gentleman, seated, appears in no acute distress, in his usual state of health. VITAL SIGNS: On exam, the patient is 5 feet 11 inches, weighs 176 pounds, with BMI of 24.6. Blood pressure 121/60, pulse is 55 and regular, respiratory rate is 20, oxygen saturation 97% on room air, temperature 98.0. HEENT: Mucous membranes are moist. NECK: Without increased JVP. LUNGS: Breath sounds were clear with good effort. No wheezes rales or rhonchi. CORONARY: S1 and S2, regular, without murmurs. ABDOMEN: Active bowel sounds and soft, nontender. EXTREMITIES: Lower extremities were free of edema and warm. NEUROLOGIC: Awake, alert, and oriented to person, place, and time. Grossly normal sensory and motor function in the upper and lower extremities. Normal gait. SKIN: Age-appropriate changes. No cyanosis or rashes. PSYCHOLOGIC: Pleasant and cooperative. DIAGNOSTIC STUDIES/LAB DATA: A 12-lead ECG from 04/29/19 shows normal sinus rhythm, 60 beats per minute. QRS axis -30. Normal AV and IV conduction times. Poor R-wave progression and normal ST. Corrected QT interval of 393 milliseconds. Labs: Sodium 139, potassium 4.4, chloride 108, bicarb 27, BUN 23, creatinine 1.6, glucose 86, magnesium 1.7, AST 17, ALT 16. Outpatient studies include echocardiogram from 06/08/18 showing ejection fraction of 50% to 55%, with abnormal diastolic filling, mitral annular calcification with mild mitral insufficiency, mild tricuspid insufficiency, mild -to-moderate pulmonic insufficiency, and PA pressure at 37 mmHg. Stress test from 07/29/18 showed normal perfusion rest and stress, with an ejection fraction of 55% at rest and 58% post stress. Multiple Holter monitors and event monitors have been done, the most recent Holter monitor was on 04/10/19 off any antiarrhythmics, showing normal sinus rhythm with a minimum rate 50 beats a minute, maximum rate 101 beats a minute, average rate 71 beats a minute, with 20,000 PACs, which increased with sleep, 11 ,000 PVCs, which decreased with sleep, and rare brief supraventricular tachycardia, and no apparent symptoms on a detailed activity log. ASSESSMENT AND PLAN: In summary, Mr. Cecy is an 83-year-old gentleman with paroxysmal atrial fibrillation for which he is asymptomatic, whose ectopy increased on Multaq, both atrial fibrillation and ventricular ectopy. His renal insufficiency impacts our ability to chose an antiarrhythmic. We are going to try him on low-dose sotalol on the monitor to follow QT intervals and also amount of ectopy he is having with loading. The patient has understanding of the potential side effects of sotalol and indication for admission. [id number]/[facility] #: [id number] GLENNY
[2019-04-30] MEDS ORDERED: Influenza VAC *QUAD* 2019-20* 0.5 ML SYRINGE IM ONE (09:00)
[2019-04-30] MEDS: Folic Acid TAB* 1 MG PO SCH (09:46)
[2019-04-30] MEDS: Lisinopril TAB* 10 MG PO SCH (09:47)
[2019-04-30] MEDS: amLODIPine TAB* 5 MG PO SCH (09:48)
[2019-04-30] MEDS: Sotalol TAB* 80 MG PO SCH ×2 (10:06→20:52)
--- NOTE | 2019-04-30 12:16 | PN ---
Subjective Date of Service: 04/30/19 - cc: PAF Interval History: Mild OS dizziness out of bed, otherwise feels well. Trouble sleeping in [facility] [place]. Medications Active Medications: Amlodipine Besylate (Norvasc Tab*) 10 mg PO DAILY [facility] Last Admin: 04/30/19 09:48 Dose: 10 mg Folic Acid (Folvite Tab*) 0.5 mg PO DAILY [facility] Last Admin: 04/30/19 09:46 Dose: 0.5 mg Lisinopril (Prinivil Tab*) 20 mg PO DAILY [facility] Last Admin: 04/30/19 09:47 Dose: 20 mg Mesalamine (Mesalamine Dr Cap*) 800 mg PO BID [facility] Last Admin: 04/30/19 09:46 Dose: 800 mg Rivaroxaban (Xarelto(*)) 15 mg PO DAILY@1700 MATT Sodium Chloride ( Peripheral Saline Flush*) 10 ml PERIPH Q8H [facility] Last Admin: 04/30/19 09:51 Dose: 10 ml Sotalol HCl (Betapace Tab*) 40 mg PO BID [facility] Last Admin: 04/30/19 10:06 Dose: 40 mg Objective Vital Signs: Temp Pulse Resp BP Pulse Ox 98.4 F 56 20 125/60 98 04/30/19 11:15 04/30/19 11:15 04/30/19 11:15 04/30/19 11:15 04/30/19 11:15 Oxygen Devices in Use Now: None Appearance: elderly, NAD, seated. Eyes: No Scleral Icterus, PERRLA Ears/Nose/Mouth/Throat: Clear Oropharnyx Neck: No Thyroid Enlargement, Masses Respiratory: Symmetrical Chest Expansion and Respiratory Effort, Clear to Auscultation Cardiovascular: NL Sounds; No Murmurs; No JVD, RRR Abdominal: NL Sounds; No Tenderness; No Distention Extremities: No Edema Skin: No Rash or Ulcers Neurological: Alert and Oriented x 3, NL Muscle Strength and Tone Lines/Tubes/Other Access: Clean, Dry and Intact Peripheral IV Laboratory Results: 04/29/19 10:11 Total Bilirubin 0.80 mg/dL (0.2-1.0) 04/29/19 10:11 AST 17 U/L (13-39) 04/29/19 10:11 ALT 16 U/L (7-52) 10/16/19 10:11 Alkaline Phosphatase 63 U/L (34-104) 04/29/19 10:11 Total Protein 7.0 g/dL (6.4-8.9) 04/29/19 10:11 Albumin 4.3 g/dL (3.2-5.2) 04/29/19 10:11 Globulin 2.7 g/dL (2-4) 04/29/19 10:11 Albumin/Globulin Ratio 1.6 (1-3) 04/29/19 10:11 EKG Data: ECG: Sbrady, QTC <400 ms Assessment/Plan 83 yo with PAF, increased ventricular and atrial ectopy on Multaq. Getting loaded with Sotalol on monitor due to CKD and response to Multaq. No significant ectopy here, QTc OK Continue sotalol load. Decreasing Xarelto dose as per pharmacy assist based on Creat. Clearance. Possible d/c in AM.
[2019-04-30] MEDS ORDERED: Rivaroxaban TAB(*) 20 MG TAB PO SCH (17:00)
[2019-04-30] MEDS ORDERED: Rivaroxaban TAB(*) 15 MG PO SCH ×2 (17:11→17:30)
[2019-05-01] MEDS: Saline FLUSH-PERIPHERAL* 10 ML SYRINGE PERIPH SCH ×2 (02:00→08:56)
[2019-05-01] MEDS: Lisinopril TAB* 10 MG PO SCH (08:53)
[2019-05-01] MEDS: amLODIPine TAB* 5 MG PO SCH (08:53)
[2019-05-01] MEDS: Folic Acid TAB* 1 MG PO SCH (08:55)
[2019-05-01] MEDS: Sotalol TAB* 80 MG PO SCH (08:55)
[2019-05-01 12:31] VITALS: BP 117/63
--- NOTE | 2019-05-01 13:29 | DS ---
AMENDED REPORT NOW INCLUDES DESIGNATED COSIGNER DISCHARGE SUMMARY: DATE OF ADMISSION: 04/29/19 DATE OF DISCHARGE: 05/01/19 ATTENDING PHYSICIAN: Dr. Uyen Anderson, Cardiology.* (DICTATED BY MARGAUX BOYLE NP) PRIMARY MEASUREMENT SUPERVISOR: Dr. Uyen Anderson. ADMITTING DIAGNOSES: 1. Paroxysmal atrial fibrillation with ventricular premature complexes, on Multaq therapy, here for sotalol medication load. 2. Long-term anticoagulation on Xarelto 20 mg a day. 3. Premature ventricular contractions. 4. History of hypertension. DISCHARGE DIAGNOSES: 1. History of paroxysmal atrial fibrillation/flutter, historically on Multaq with increased ventricular premature complex burden status post sotalol medication load. Creatinine clearance less than 50, thus Xarelto was reduced to 15 mg a day. QTc remained stable on sotalol 40 mg p.o. b.i.d. He has remained in sinus rhythm. He is to be discharged home today. Recommend keeping K greater than 4, mag greater than 2, QTc is stable less than 500, to follow up on 05/11/19 at 3:15 p.m. with repeat ECG at that time. We will follow up in regards to considering daily dosing of sotalol due to creatinine clearance reduction, will address at that time. 2. History of long-term anticoagulation due to history of paroxysmal atrial fibrillation/flutter, creatinine clearance less than 50, now on Xarelto 15 mg a day with meals, tolerating medication change, script sent to Nikki Walker at [facility]. 3. History of hypertension. We will continue amlodipine with benazepril. Blood pressure is controlled on current medical therapy. 4. History of renal insufficiency. Creatinine on 04/29/19 was 1.6, baseline creatinine is 1.3 to 1.5. We will need repeat BMP, magnesium in the next 2 weeks. I will address at follow up on 05/11/19. PROCEDURES PERFORMED: None. COURSE OF HOSPITAL STAY: This is a pleasant 83-year-old male patient who follows with Dr. Uyen Anderson of our practice due to a notable history of asymptomatic paroxysmal AFib/flutter, historically on Multaq therapy; however, he had increased PVC burden with Multaq therapy, thus it was discontinued. He presented to [facility] on 04/29/19 for elective sotalol medication load. Creatinine clearance was updated on date of admission and was 40, thus Xarelto reduced to 15 mg p.o. daily with evening meal. He has tolerated sotalol 40 mg p.o. b.i.d. He has remained in sinus rhythm, no evidence of VT or PVCs, his QTc again has remained stable, thus he is to be discharged home on a heart healthy diet. Prescriptions for sotalol and Xarelto [facility]. Last chemistry was ; at that time sodium was 139, potassium 4.4, chloride 108, carbon dioxide 27 , creatinine 1.63, magnesium 1.7. He was given 1 g IV mag. Current vital signs: Temperature 97.2, pulse 52, respirations 16, oxygenation 96% on room air, blood pressure 125/67. He is to be discharged home later today in stable condition. FOLLOWUP APPOINTMENTS: The patient is to follow up with myself, Margaux Boyle NP on 05/11/19 at 3:15 p.m. He is to keep his followup appointment with Dr. Uyen Anderson in early May. He is to follow up with primary care provider Dr. Sheikh in 7 to 10 days. DIET: Heart healthy ACTIVITY: No restrictions. DISCHARGE MEDICATIONS: Include: 1. Sotalol 40 mg p.o. b.i.d. 2. Xarelto 15 mg p.o. daily with evening meal. 3. Amlodipine 10 mg a day. 4. Benazepril 20 mg a day. 5. Folic acid 0.4 mg p.o. daily. 6. Saw pal[place] 450 mg p.o. b.i.d. 7. Multivitamin daily. 8. Claritin 10 mg p.o. daily p.r.n. 9. Vitamin C 500 mg p.o. daily. 10. Vitamin B12 injection as directed. OUTPATIENT BLOOD WORK: The patient will need basic metabolic panel with magnesium prior to followup appointment on 05/11/19, script will be placed through [facility]. The patient is aware. Dr. Uyen Anderson has personally seen the patient and reviewed this morning's ECG and agrees with the above assessment and plan. MARGAUX BOYLE NP [id number]/[facility] #: [id number] GLENNY
== END 2019-05-01 14:25 | disposition home or self-care (01) | DRG 309 ==
LOC: MEDTELE 09:01
PROVIDERS: ADMIT Specialist; ATTEND Specialist
DX: I48.0 Paroxysmal atrial fibrillation (principal); K50.90 Crohn's disease, unspecified, without complications; I10 Essential (primary) hypertension; I08.1 Rheumatic disorders of both mitral and tricuspid valves; N28.9 Disorder of kidney and ureter, unspecified; I48.92 Unspecified atrial flutter; Z98.49 Cataract extraction status, unspecified eye; Z80.0 Family history of malignant neoplasm of digestive organs; Z82.0 Family history of epilepsy and other diseases of the nervous system; Z87.891 Personal history of nicotine dependence; Z23 Encounter for immunization; Z79.01 Long term (current) use of anticoagulants
CPT/HCPCS: 36415; 80053; 83735; 90686; 93005; A9270-GY; J3475

== ENCOUNTER 2020-03-10 12:27 | Inpatient (IN) ==
[2020-03-10] MEDS ORDERED: NS 0.9% 1000 ml BAG 1,000 ML IV ONE (12:32)
[2020-03-10] MEDS ORDERED: Prothrombin Complex Conc. DOSE = Units Factor IX (nine) IV SLOW PU ONE (12:40)
[2020-03-10] MEDS ORDERED: levETIRAcetam 1000MG IVPREMIX 1,000 MG/100 ML BAG IVPB ONE (12:41)
[2020-03-10] MEDS ORDERED: Iodixanol (CONTRAST) 320 MG/ML 100 ML SDV IV ONE (12:43)
[2020-03-10] MEDS ORDERED: niCARdipine 0.1MG/ML IVPREMIX 20 MG/200 ML BAG IV SCH (13:00)
[2020-03-10 13:09] LABS: ABS Eosinophils 0.1 10^3/ul (0-0.6); ABS Lymphocytes 1.3 10^3/ul (1.0-4.8); ABS Monocytes 0.5 10^3/ul (0-0.8); ABS Neutrophils 4.3 10^3/ul (1.5-7.7); Eosinophil % 1.6 %; Hematocrit 45 % (42-52); Hemoglobin 15.3 g/dL (14.0-18.0); Lymphocyte % 20.6 %; Mean Corpuscular HGB Conc 34 g/dL (31-36); Mean Corpuscular Hemoglobin 29 pg (27-31); Mean Corpuscular Volume 86 fL (80-94); Mean Platelet Volume 8.1 fL (7.4-10.4); Nucleated Red Blood Cells % 0.1; Platelet Count 120 10^3/uL (150-450); Red Blood Count 5.24 10^6 /uL (4.18-5.48); Red Cell Distribution Width 14 % (10-15); White Blood Count 6.2 10^3/uL (3.5-10.8)
[2020-03-10 13:23] LABS: Activated Partial Thrombo Time 41.2 seconds (26.0-38.0); INR 1.47 (0.82-1.09)
[2020-03-10 13:29] LABS: Albumin 3.9 g/dL (3.2-5.2); Albumin/Globulin Ratio 1.2 (1-3); BUN/Creatinine Ratio 18.2 (8-20); Calcium 9.4 mg/dL (8.6-10.3); EGFR African American 52.6 (>60); EGFR Non-African American 43.5 (>60); Globulin 3.2 g/dL (2-4); HDL Cholesterol 28.6 mg/dL; Potassium 4.6 mmol/L (3.5-5.0); Total Bilirubin 0.9 mg/dL (0.2-1.0); Total Protein 7.1 g/dL (6.4-8.9)
[2020-03-10 16:27] LABS: Urine Appearance Clear; Urine Bilirubin Negative (Negative); Urine Blood 1+ (Negative); Urine Color Straw; Urine Glucose Negative (Negative); Urine Ketones Negative (Negative); Urine Nitrite Negative (Negative); Urine Protein Negative (Negative); Urine Specific Gravity 1.013 (1.010-1.030); Urine Urobilinogen Negative (Negative)
[2020-03-10 16:33] LABS: Urine Bacteria Absent (Absent); Urine Red Blood Cell Trace(0-2/hpf) (Absent); Urine Squamous Epithelial Cell Present (Absent); Urine White Blood Cell Absent (Absent)
[2020-03-10 19:15] LABS: Magnesium 1.9 mg/dL (1.9-2.7)
[2020-03-11 05:27] LABS: ABS Eosinophils 0.1 10^3/ul (0-0.6); ABS Lymphocytes 1.3 10^3/ul (1.0-4.8); ABS Monocytes 0.5 10^3/ul (0-0.8); ABS Neutrophils 3.9 10^3/ul (1.5-7.7); Eosinophil % 1.6 %; Hematocrit 41 % (42-52); Hemoglobin 14.3 g/dL (14.0-18.0); Lymphocyte % 22.7 %; Mean Corpuscular HGB Conc 35 g/dL (31-36); Mean Corpuscular Hemoglobin 29 pg (27-31); Mean Corpuscular Volume 85 fL (80-94); Platelet Count 105 10^3/uL (150-450); Red Blood Count 4.85 10^6 /uL (4.18-5.48); Red Cell Distribution Width 14 % (10-15); White Blood Count 5.8 10^3/uL (3.5-10.8)
[2020-03-11 05:38] LABS: Activated Partial Thrombo Time 35.6 seconds (26.0-38.0); BUN/Creatinine Ratio 15.9 (8-20); Calcium 9.2 mg/dL (8.6-10.3); EGFR African American 56.4 (>60); EGFR Non-African American 46.6 (>60); INR 1.11 (0.82-1.09); Potassium 4.3 mmol/L (3.5-5.0)
[2020-03-11] MEDS: Multivitamins/Minerals TAB PO SCH (08:34)
[2020-03-12 05:27] LABS: ABS Eosinophils 0.1 10^3/ul (0-0.6); ABS Lymphocytes 1.3 10^3/ul (1.0-4.8); ABS Monocytes 0.5 10^3/ul (0-0.8); ABS Neutrophils 4.3 10^3/ul (1.5-7.7); Eosinophil % 1.9 %; Hematocrit 42 % (42-52); Hemoglobin 14.3 g/dL (14.0-18.0); Lymphocyte % 20.4 %; Mean Corpuscular HGB Conc 34 g/dL (31-36); Mean Corpuscular Hemoglobin 29 pg (27-31); Mean Corpuscular Volume 85 fL (80-94); Mean Platelet Volume 8.1 fL (7.4-10.4); Platelet Count 104 10^3/uL (150-450); Red Blood Count 4.99 10^6 /uL (4.18-5.48); Red Cell Distribution Width 15 % (10-15); White Blood Count 6.3 10^3/uL (3.5-10.8)
[2020-03-12 05:40] LABS: INR 1.16 (0.82-1.09)
[2020-03-12 06:53] LABS: Calcium 9.2 mg/dL (8.6-10.3); Potassium 4.2 mmol/L (3.5-5.0)
[2020-03-12 06:59] LABS: BUN/Creatinine Ratio 15.3 (8-20); EGFR African American 56.8 (>60)
[2020-03-12] MEDS: Multivitamins/Minerals TAB PO SCH (09:17)
[2020-03-13] MEDS: Multivitamins/Minerals TAB PO SCH (07:54)
[2020-03-14 08:54] VITALS: BP 128/61
[2020-03-14] MEDS: Multivitamins/Minerals TAB PO SCH (08:59)
== END 2020-03-14 11:20 ==
LOC: ED 12:27 → ICU 14:47 → MEDTELE 03-12 09:37
PROVIDERS: ADMIT Internal Medicine; ATTEND Internal Medicine

== ENCOUNTER 2020-03-14 10:08 | Inpatient (IN) ==
[2020-03-14] MEDS ORDERED: Senna TAB 8.6 mg TAB PO PRN (12:16)
[2020-03-14] MEDS ORDERED: Magnesium Hydroxide LIQ 30 ML UDC PO PRN (12:16)
[2020-03-16 07:10] LABS: ABS Eosinophils 0.1 10^3/ul (0-0.6); ABS Lymphocytes 1.5 10^3/ul (1.0-4.8); ABS Monocytes 0.5 10^3/ul (0-0.8); ABS Neutrophils 4.4 10^3/ul (1.5-7.7); Eosinophil % 1.5 %; Hematocrit 43 % (42-52); Hemoglobin 14.8 g/dL (14.0-18.0); Lymphocyte % 23.3 %; Mean Corpuscular HGB Conc 35 g/dL (31-36); Mean Corpuscular Hemoglobin 30 pg (27-31); Mean Corpuscular Volume 85 fL (80-94); Mean Platelet Volume 8.2 fL (7.4-10.4); Platelet Count 118 10^3/uL (150-450); Red Blood Count 4.98 10^6 /uL (4.18-5.48); Red Cell Distribution Width 15 % (10-15); White Blood Count 6.6 10^3/uL (3.5-10.8)
[2020-03-16 07:28] LABS: Albumin 3.9 g/dL (3.2-5.2); Albumin/Globulin Ratio 1.3 (1-3); BUN/Creatinine Ratio 19.9 (8-20); Calcium 9.6 mg/dL (8.6-10.3); EGFR African American 51.8 (>60); EGFR Non-African American 42.8 (>60); Potassium 4.2 mmol/L (3.5-5.0); Total Bilirubin 0.9 mg/dL (0.2-1.0); Total Protein 6.9 g/dL (6.4-8.9)
[2020-03-23 05:19] VITALS: BP 123/63
[2020-03-23 06:24] LABS: ABS Eosinophils 0.1 10^3/ul (0-0.6); ABS Lymphocytes 1.5 10^3/ul (1.0-4.8); ABS Monocytes 0.5 10^3/ul (0-0.8); ABS Neutrophils 3.8 10^3/ul (1.5-7.7); Eosinophil % 1.4 %; Hematocrit 41 % (42-52); Hemoglobin 14.4 g/dL (14.0-18.0); Lymphocyte % 25.4 %; Mean Corpuscular HGB Conc 35 g/dL (31-36); Mean Corpuscular Hemoglobin 30 pg (27-31); Mean Corpuscular Volume 85 fL (80-94); Mean Platelet Volume 8.5 fL (7.4-10.4); Platelet Count 114 10^3/uL (150-450); Red Blood Count 4.85 10^6 /uL (4.18-5.48); Red Cell Distribution Width 14 % (10-15); White Blood Count 5.9 10^3/uL (3.5-10.8)
[2020-03-23 06:35] LABS: Albumin 3.8 g/dL (3.2-5.2); Albumin/Globulin Ratio 1.4 (1-3); BUN/Creatinine Ratio 18.5 (8-20); Calcium 9.5 mg/dL (8.6-10.3); EGFR African American 53.8 (>60); EGFR Non-African American 44.5 (>60); Globulin 2.7 g/dL (2-4); Potassium 4.2 mmol/L (3.5-5.0); Total Bilirubin 0.9 mg/dL (0.2-1.0); Total Protein 6.5 g/dL (6.4-8.9)
== END 2020-03-23 11:55 | disposition home or self-care (01) | DRG 57 ==
LOC: PMRU 11:28
PROVIDERS: ADMIT Physical Medicine & Rehabilitation; ATTEND Physical Medicine & Rehabilitation

== ENCOUNTER 2020-12-13 11:54 | Inpatient (IN) ==
[2020-12-13 13:57] LABS: ABS Monocytes 0.5 10^3/ul (0-0.8); Eosinophil % 0.4 %; Hematocrit 49 % (42-52); Hemoglobin 16.7 g/dL (14.0-18.0); Lymphocyte % 11.7 %; Mean Corpuscular HGB Conc 34 g/dL (31-36); Mean Corpuscular Hemoglobin 29 pg (27-31); Mean Corpuscular Volume 85 fL (80-94); Nucleated Red Blood Cells % 0.1; Platelet Count 160 10^3/uL (150-450); Red Blood Count 5.74 10^6 /uL (4.18-5.48); Red Cell Distribution Width 14 % (10-15); White Blood Count 8.5 10^3/uL (3.5-10.8)
[2020-12-13 14:13] LABS: Albumin 4.4 g/dL (3.2-5.2); Albumin/Globulin Ratio 1.5 (1-3); Calcium 10.1 mg/dL (8.6-10.3); EGFR African American 43.8 (>60); EGFR Non-African American 36.2 (>60); Globulin 2.9 g/dL (2-4); Potassium 4.6 mmol/L (3.5-5.0); Total Protein 7.3 g/dL (6.4-8.9)
[2020-12-13] MEDS ORDERED: NS 0.9% 1000 ml BAG 1,000 ML IV ONE (15:32)
[2020-12-14] MEDS: Aspirin EC 81 mg TAB.EC (enteric coated) PO SCH (10:33)
[2020-12-14 11:33] LABS: Calcium 9.1 mg/dL (8.6-10.3); EGFR African American 50.6 (>60); EGFR Non-African American 41.8 (>60); Potassium 4.3 mmol/L (3.5-5.0)
[2020-12-15 06:00] LABS: Anion Gap 6 mmol/L (2-11); Blood Urea Nitrogen 27 mg/dL (6-24); CO2 Carbon Dioxide 23 mmol/L (22-32); Calcium 8.8 mg/dL (8.6-10.3); Chloride 110 mmol/L (101-111); EGFR African American 45.6 (>60); EGFR Non-African American 37.7 (>60); Glucose 79 mg/dL (70-100); Potassium 4.2 mmol/L (3.5-5.0); Sodium 139 mmol/L (135-145)
[2020-12-15 06:25] LABS: Folate > 20.00 ng/mL (5.90-24.80)
[2020-12-15 06:26] LABS: Vitamin B12 529 pg/mL (180-914)
[2020-12-15] MEDS: Aspirin EC 81 mg TAB.EC (enteric coated) PO SCH (08:13)
[2020-12-15 12:44] LABS: Body Fluid Source Cerebral Spinal
[2020-12-15 12:57] LABS: CSF Glucose 57 mg/dL (40-70)
[2020-12-15 15:50] LABS: Body Fluid Mono 5 %
[2020-12-15 23:53] LABS: ABS Eosinophils 0.1 10^3/ul (0-0.6); ABS Lymphocytes 1.4 10^3/ul (1.0-4.8); ABS Monocytes 0.5 10^3/ul (0-0.8); ABS Neutrophils 4.6 10^3/ul (1.5-7.7); Eosinophil % 1.6 %; Hematocrit 46 % (42-52); Hemoglobin 15.6 g/dL (14.0-18.0); Mean Corpuscular HGB Conc 34 g/dL (31-36); Mean Corpuscular Hemoglobin 29 pg (27-31); Mean Corpuscular Volume 86 fL (80-94); Mean Platelet Volume 7.8 fL (7.4-10.4); Platelet Count 121 10^3/uL (150-450); Red Cell Distribution Width 14 % (10-15); White Blood Count 6.6 10^3/uL (3.5-10.8)
[2020-12-16 06:36] LABS: ABS Eosinophils 0.1 10^3/ul (0-0.6); ABS Lymphocytes 1.3 10^3/ul (1.0-4.8); ABS Monocytes 0.5 10^3/ul (0-0.8); ABS Neutrophils 4.6 10^3/ul (1.5-7.7); Eosinophil % 1.6 %; Hematocrit 46 % (42-52); Hemoglobin 15.2 g/dL (14.0-18.0); Lymphocyte % 19.3 %; Mean Corpuscular HGB Conc 33 g/dL (31-36); Mean Corpuscular Hemoglobin 29 pg (27-31); Mean Corpuscular Volume 86 fL (80-94); Mean Platelet Volume 7.9 fL (7.4-10.4); Platelet Count 112 10^3/uL (150-450); Red Blood Count 5.29 10^6 /uL (4.18-5.48); Red Cell Distribution Width 14 % (10-15); White Blood Count 6.5 10^3/uL (3.5-10.8)
[2020-12-16 06:38] LABS: EGFR African American 51.3 (>60); EGFR Non-African American 42.4 (>60); Potassium 4.3 mmol/L (3.5-5.0)
[2020-12-16 06:47] LABS: INR 1.22 (0.82-1.09)
[2020-12-16] MEDS: Aspirin EC 81 mg TAB.EC (enteric coated) PO SCH (09:38)
[2020-12-16 15:21] LABS: CSF VDRL Negative (Negative)
[2020-12-16 18:22] LABS: HSV 1 PCR, CSF Negative (Negative); HSV 2 PCR, CSF Negative (Negative)
[2020-12-17 06:05] LABS: ABS Eosinophils 0.1 10^3/ul (0-0.6); ABS Lymphocytes 1.5 10^3/ul (1.0-4.8); ABS Monocytes 0.7 10^3/ul (0-0.8); ABS Neutrophils 4.9 10^3/ul (1.5-7.7); Eosinophil % 1.5 %; Hematocrit 45 % (42-52); Hemoglobin 15.2 g/dL (14.0-18.0); Lymphocyte % 20.4 %; Mean Corpuscular HGB Conc 34 g/dL (31-36); Mean Corpuscular Hemoglobin 29 pg (27-31); Mean Corpuscular Volume 86 fL (80-94); Platelet Count 111 10^3/uL (150-450); Red Blood Count 5.26 10^6 /uL (4.18-5.48); Red Cell Distribution Width 14 % (10-15); White Blood Count 7.2 10^3/uL (3.5-10.8)
[2020-12-17 06:34] LABS: EGFR African American 48.1 (>60); EGFR Non-African American 39.8 (>60); Potassium 4.1 mmol/L (3.5-5.0)
[2020-12-17] MEDS: Aspirin EC 81 mg TAB.EC (enteric coated) PO SCH (08:33)
[2020-12-18] MEDS: Aspirin EC 81 mg TAB.EC (enteric coated) PO SCH (10:33)
[2020-12-19 06:25] LABS: ABS Eosinophils 0.1 10^3/ul (0-0.6); ABS Lymphocytes 1.1 10^3/ul (1.0-4.8); ABS Monocytes 0.5 10^3/ul (0-0.8); ABS Neutrophils 4.6 10^3/ul (1.5-7.7); Eosinophil % 1.4 %; Hematocrit 45 % (42-52); Hemoglobin 14.9 g/dL (14.0-18.0); Mean Corpuscular HGB Conc 33 g/dL (31-36); Mean Corpuscular Hemoglobin 29 pg (27-31); Mean Corpuscular Volume 86 fL (80-94); Mean Platelet Volume 8.7 fL (7.4-10.4); Platelet Count 119 10^3/uL (150-450); Red Blood Count 5.18 10^6 /uL (4.18-5.48); Red Cell Distribution Width 14 % (10-15); White Blood Count 6.3 10^3/uL (3.5-10.8)
[2020-12-19 06:44] LABS: Calcium 8.9 mg/dL (8.6-10.3); EGFR African American 43.8 (>60); EGFR Non-African American 36.2 (>60); Potassium 4.2 mmol/L (3.5-5.0)
[2020-12-19] MEDS: Aspirin EC 81 mg TAB.EC (enteric coated) PO SCH (10:37)
[2020-12-20] MEDS: Aspirin EC 81 mg TAB.EC (enteric coated) PO SCH (09:00)
[2020-12-20 11:27] LABS: Calcium 9.3 mg/dL (8.6-10.3); EGFR African American 41.2 (>60); Potassium 4.2 mmol/L (3.5-5.0)
[2020-12-20 15:30] LABS: Albumin 3.2 g/dL (3.4-4.7); Albumin/Globulin Ratio 1.12; Gamma Globulin 1.2 g/dL (0.6-1.6)
[2020-12-20 16:00] LABS: Albumin 4.6 mg/dL; Albumin/Globulin Ratio 0.84; Gamma Globulin 2.1 mg/dL; Protein,Total, Random Urine 10 mg/dL
[2020-12-21 07:02] LABS: Calcium 8.9 mg/dL (8.6-10.3); EGFR African American 41.9 (>60); EGFR Non-African American 34.7 (>60); Potassium 4.5 mmol/L (3.5-5.0)
[2020-12-21] MEDS: Aspirin EC 81 mg TAB.EC (enteric coated) PO SCH (09:55)
[2020-12-21 12:36] VITALS: BP 102/53
[2020-12-21 16:24] LABS: Oligoclonal Proteins Interpret 3 bands (<2)
[2021-01-06] MEDS ORDERED: Cyanocobalamin INJ 1,000 MCG/ML VIAL 1 ML VIAL IM SCH (09:00)
== END 2020-12-21 13:37 | disposition home or self-care (01) | DRG 92 ==
LOC: ED 11:54 → MEDTELE 11:54
PROVIDERS: ADMIT Internal Medicine; ATTEND Student in an Organized Health Care Education/Training Program